=== PATIENT | female | born 1935 | race Caucasian/White ===

== ENCOUNTER 2017-02-09 13:25 | Emergency (ER) | payer OTHER ==
[~2017-02-09] VITALS: Ht 167.6 cm; Wt 90.3 kg
[~2017-02-09 13:25] MED LIST: ACEPHEN PR; ACET325 PO; ACET325S PR; ACET500; ALBIPROI INH; ALBU3IS INH; ALBU90OI INH; ALBU90OI6; ALBU90OI6 INH; ALBU90OI61; ALBU90OI61 INH; ALEN70 PO; ALLERGY10 MG; ALUM-MAG HYDRO360 ML PO; ALUMAG30SU PO; AMLO5; AMOCLA875 PO; Artificial Tea1 EACH BOTHEYES; Artificial Tear15 ML BOTHEYES; Aspirin EC81 MG PO; BISA10S PR; BUDE6HFA INH; BUME1 PO; BUME2 PO; BYSTOLIC 2.5 MG PO; Bystolic2.5 MG PO; CALCAVITD PO; CALCIUM + D3 E1 EACH PO; CALCIUM 600 +1 EAC3 PO; CEPH500 PO; CHOL10002 PO; CIPR500 PO; CLARITIN10 MG PO; COLE625 PO; CVS DISPOSABLE399 ML PR; Catapres0.1 MG PO; DEEP SEA44 ML; DICL25ER; DOCU100 PO; DULERA 100 MCG/13 GM INH; DULERA 200 MCG/13 GM IH; DULERA 200 MCG/13 GM INH; Duragesic 12 M12 MCG TD; Eye Drops15 ML BOTHEYES; FENT50TP TOP; FERR325 PO; FLONASE ALLERG9.9 ML NS; FLUO10 PO; FLUT44OIA INH; FURO20 PO; FURO40 PO; Fentanyl1 EAC2 TD; Ferus150 MG PO; Feverall650 MG PR; Fruity C250 MG PO; GAVILAX17 GM PO; GUAI600T33 PO; HYDACE5 PO; HYDACE5325 PO; Hair, Skin & N1 EACH PO; IBUP600 PO; IBUP800 PO; IRON150C PO; IRON159 MG PO; LANOXIN125 MCG PO; LANS30EC PO; LAVAP17G PO; LEVFLO250 PO; LEVFLO500 PO; LEVO750 PO; LIDO5TP TOP; LINE600 PO; LISI5 PO; LOPE2C; LOPE2C PO; LORA.5 PO; LORA1 PO; LORA10 PO; Lisinopril2.5 MG PO; Loratadine10 MG PO; MECL25 PO; MELA3; METOPROLOL; MIRT15 PO; MORPHINE PUMP; MULTIVITAMIN; Milk Of Ma400 MG/5 M PO; Multivitamins1 EAC4 PO; NEBI10 PO; NEBI5 PO; NITR100CA PO; NYST100000 PO; OMEP20ER; OMEP20ER PO; ONDA4 PO; ONDA4ODT MM; ONDA8ODT MM; OXYACE7.5T PO; OXYC10ER PO; OXYC10TA19 PO; OXYC5 PO; Omeprazole20 M1 PO; POTCHL10ER PO; PRED1 PO; PRED20 PO; PREG100 PO; PREG150 PO; PRIM50 PO; PROAIR RESPICL90 MCG INH; PROAIR RESPICL90 MCG PO; PROM25 PO; Prilosec Otc20 MG PO; Prozac20 MG PO; RANI150 PO; RXHYDACE PO; RXONDA4ODT MM; SENN187 PO; Senokotxtra17.2 MG PO; TIZANIDINE HCL2 MG PO; Tizanidine HCl2 MG PO; Tylenol With C1 EACH PO; VITAMIN B-121000 MCG PO; XARELTO15 MG PO; Zithromax250 MG PO; Zofran Odt4 MG SL; Zofran Odt8 MG PO; Zofran4 MG PO; [UNRECOGNIZED DRUG - OTHER] IV; [UNRECOGNIZED DRUG - SUPPLY] TOP
[2017-02-09] MEDS ORDERED: HYDR1TAB94 PO (13:48)
[2017-02-09] MEDS ORDERED: Norco 5-325 Ta1 EACH PO (16:12)
[2017-07-08] MEDS ORDERED: BUME1 PO (04:46)
[2017-07-08] MEDS ORDERED: CETI5 PO (04:48)
[2017-07-08] MEDS ORDERED: LIDOCAINE1 EACH TOP (04:55)
[2017-07-08] MEDS ORDERED: Bisac-Evac10 MG PR (04:57)
[2017-07-08] MEDS ORDERED: Norco 5-325 Ta1 EACH PO (04:59)
[2017-07-12] MEDS ORDERED: Augmentin 875-1 EACH PO (11:17)
[2017-07-12] MEDS ORDERED: CULTURELLE1 EACH PO (11:19)
[2017-07-12] MEDS ORDERED: POTA10T PO (11:19)
[2017-07-12] MEDS ORDERED: ONDA4 PO (11:20)
[2017-08-01] MEDS ORDERED: LIDOCAINE5 GM TOP (09:36)
[2017-10-21] MEDS ORDERED: Motion Sickness25 M1 PO (14:59)
[2017-10-21] MEDS ORDERED: Zofran Odt4 MG PO (14:59)
[2017-11-30] MEDS ORDERED: NEBI5 PO (07:28)
[2017-11-30] MEDS ORDERED: CEFP200 PO (09:30)
[2018-01-18] MEDS ORDERED: HYDR1TAB94 PO (02:15)
[2018-01-18] MEDS ORDERED: Colace100 MG PO (02:15)
[2018-01-18] MEDS ORDERED: ONDA4ODT MM (02:15)
== END 2017-02-09 17:20 | disposition home or self-care (01) ==
LOC: ER 13:25
DX: R07.2 Precordial pain (principal); I48.0 Paroxysmal atrial fibrillation; J44.9 Chronic obstructive pulmonary disease, unspecified; I25.2 Old myocardial infarction; I12.9 Hypertensive chronic kidney disease with stage 1 through stage 4 chronic kidney disease, or unspecified chronic kidney disease; N18.9 Chronic kidney disease, unspecified; D63.1 Anemia in chronic kidney disease; K21.9 Gastro-esophageal reflux disease without esophagitis; F32.9 Major depressive disorder, single episode, unspecified; Z88.2 Allergy status to sulfonamides; Z88.5 Allergy status to narcotic agent; Z88.8 Allergy status to other drugs, medicaments and biological substances; Z79.899 Other long term (current) drug therapy; E78.5 Hyperlipidemia, unspecified; Z90.710 Acquired absence of both cervix and uterus; Z90.49 Acquired absence of other specified parts of digestive tract; Z96.653 Presence of artificial knee joint, bilateral
CPT/HCPCS: 71010; 71020; 96374; 99284; J3010

== ENCOUNTER → 2017-02-12 | Outpatient (CLI) | payer OTHER ==
[~2017-02-12] MED LIST changes: +ALLERGY10 MG PO; +ASPI81CH PO; +AUGMENTIN125 MG/5 M PO; +AZIT500 PO; +Augmentin 875-1 EACH PO; +Bisac-Evac10 MG PR; +CEFP200 PO; +CEFU500T30 PO; +CETI5 PO; +CULTURELLE1 EACH PO; +Colace100 MG PO; +DOXY100 PO; +Desyrel50 MG PO; +FENTANYL1 EAC1 TOP; +HYDR1TAB94 PO; +LIDO700A20 TOP; +LIDOCAINE1 EACH TOP; +LIDOCAINE5 GM TOP; +MIRT15ST SL; +MORPHINE 1 MG/ML IV; +MORPHINE XX; +Micro-K10 MEQ PO; +Motion Sickness25 M1 PO; +NYST100000 TOP; +Norco 5-325 Ta1 EACH PO; +PANT40 PO; +POTA10T PO; +RISA-BID CAPLE1 EACH PO; +ROBITUSSIN COU237 ML PO; +ROPI1 PO; +SACC250C PO; +TRAM50 PO; +XARELTO20 MG PO; +Zofran Odt4 MG PO; +[UNRECOGNIZED DRUG - OTHER] BOTHEYES
[2017-02-12 14:38] LABS: Appearance, Urine Clear (Clear); Bilirubin, Urine Neg (Neg); Blood, Urine Neg (Neg); Color, Urine Yellow (P-Yellow); Glucose Qualitative, Urine Neg (Neg); Ketones, Urine Neg (Neg); Leukocyte Esterase, Urine Neg (Neg); Nitrite, Urine Neg (Neg); Protein, Urine Neg (Neg); Urobilinogen, Urine NORM (Normal)
== END ==
LOC: LAB 13:15
PROVIDERS: Family Medicine
DX: N39.0 Urinary tract infection, site not specified (principal)
CPT/HCPCS: 81003

== ENCOUNTER 2017-02-15 16:56 | Inpatient (IN) | payer OTHER ==
[~2017-02-15] VITALS: Ht 157.5 cm; Wt 75.6 kg
[~2017-02-15 16:56] MED LIST changes: -ALLERGY10 MG PO; -ASPI81CH PO; -AUGMENTIN125 MG/5 M PO; -AZIT500 PO; -Augmentin 875-1 EACH PO; -Bisac-Evac10 MG PR; -CEFP200 PO; -CEFU500T30 PO; -CETI5 PO; -CULTURELLE1 EACH PO; -Colace100 MG PO; -DOXY100 PO; -Desyrel50 MG PO; -FENTANYL1 EAC1 TOP; -LIDO700A20 TOP; -LIDOCAINE1 EACH TOP; -LIDOCAINE5 GM TOP; -MIRT15ST SL; -MORPHINE 1 MG/ML IV; -MORPHINE XX; -Micro-K10 MEQ PO; -Motion Sickness25 M1 PO; -NYST100000 TOP; -PANT40 PO; -POTA10T PO; -RISA-BID CAPLE1 EACH PO; -ROBITUSSIN COU237 ML PO; -ROPI1 PO; -SACC250C PO; -TRAM50 PO; -XARELTO20 MG PO; -Zofran Odt4 MG PO; -[UNRECOGNIZED DRUG - OTHER] BOTHEYES
[2017-02-15 17:41] LABS: BASOPHILS ABSOLUTE AUTO 0.02 K/mm3 (0.00-0.23); BASOPHILS PERCENT AUTO 0 % (0-2); EOSINOPHILS ABSOLUTE AUTO 0.23 K/mm3 (0.00-0.68); EOSINOPHILS PERCENT AUTO 3 % (0-6); Hematocrit 38.3 % (33.0-51.0); Hemoglobin 11.9 g/dL (11.5-16.0); IMMATURE GRAN ABSOLUTE AUTO 0.03 K/mm3 (0.00-0.10); IMMATURE GRAN PERCENT AUTO 0 % (0-1); LYMPHOCYTES ABSOLUTE AUTO 4.15 K/mm3 (0.84-5.20); LYMPHOCYTES PERCENT AUTO 46 % (21-46); MONOCYTES ABSOLUTE AUTO 0.62 K/mm3 (0.16-1.47); MONOCYTES PERCENT AUTO 7 % (4-13); Mean Corpuscular HGB 32.2 pg (26.0-34.0); Mean Corpuscular HGB Conc 31.1 g/dL (31.5-36.5); Mean Corpuscular Volume 104 fL (80-100); Mean Platelet Volume 11.3 fL (9.1-12.4); NEUTROPHILS ABSOLUTE AUTO 3.92 K/mm3 (1.96-9.15); NEUTROPHILS PERCENT AUTO 44 % (41-73); Platelet Count 182 K/mm3 (150-400); RDW Coefficient Variation 15.7 % (11.7-14.2); RDW Standard Deviation 59.9 fL (35.1-46.3); White Blood Cell Count 8.97 K/mm3 (4.00-11.30)
[2017-02-15 18:10] LABS: Albumin, Blood 3.4 g/dL (3.4-5.0); Albumin/Globulin Ratio 0.6 (0.8-1.8); Bilirubin, Total 0.4 mg/dL (0.1-1.0); Bun/Creatinine Ratio 28.5 (12.0-20.0); Calcium, Blood 8.7 mg/dL (8.5-10.1); Creatinine, Blood 0.98 mg/dL (0.40-1.00); Globulin, Blood 5.5 g/dL (2.2-4.0); Potassium, Blood 5.5 mmol/L (3.5-5.5); Total Protein, Blood 8.9 g/dL (6.4-8.2); Troponin I 0.026 ng/mL (0.000-0.040)
[2017-02-15 18:11] LABS: Base Excess Venous 5.4 mmol/L; Bicarbonate Venous 27.8 mmol/L (24.0-30.0); PCO2 Venous 63.3 mmHg (38-42); PO2 Venous 59.4 mmHg (38-42); pH Blood Venous 7.31 (7.34-7.37)
[2017-02-15 18:13] LABS: Digoxin (Lanoxin) 0.43 ug/mL (0.80-2.00)
[2017-02-15] MEDS ORDERED: NEBI10 PO (23:36)
[2017-02-16 04:44] LABS: BASOPHILS ABSOLUTE AUTO 0.01 K/mm3 (0.00-0.23); BASOPHILS PERCENT AUTO 0 % (0-2); EOSINOPHILS ABSOLUTE AUTO 0.01 K/mm3 (0.00-0.68); EOSINOPHILS PERCENT AUTO 0 % (0-6); Hematocrit 34.7 % (33.0-51.0); Hemoglobin 10.9 g/dL (11.5-16.0); IMMATURE GRAN PERCENT AUTO 0 % (0-1); LYMPHOCYTES ABSOLUTE AUTO 0.87 K/mm3 (0.84-5.20); LYMPHOCYTES PERCENT AUTO 16 % (21-46); MONOCYTES PERCENT AUTO 2 % (4-13); Mean Corpuscular HGB 32.1 pg (26.0-34.0); Mean Corpuscular HGB Conc 31.4 g/dL (31.5-36.5); Mean Corpuscular Volume 102 fL (80-100); NEUTROPHILS ABSOLUTE AUTO 4.59 K/mm3 (1.96-9.15); NEUTROPHILS PERCENT AUTO 82 % (41-73); Platelet Count 150 K/mm3 (150-400); RDW Coefficient Variation 15.5 % (11.7-14.2); RDW Standard Deviation 58.6 fL (35.1-46.3); White Blood Cell Count 5.58 K/mm3 (4.00-11.30)
[2017-02-16 05:08] LABS: Anion Gap 5 mmol/L (6-16); Blood Urea Nitrogen 25 mg/dL (8-24); Bun/Creatinine Ratio 27.7 (12.0-20.0); CO2, Blood 32 mmol/L (21-32); Calcium, Blood 8.3 mg/dL (8.5-10.1); Chloride, Blood 103 mmol/L (98-108); Glomerular Filtration Rate >60 (60-); Glucose, Blood 121 mg/dL (70-99); Potassium, Blood 4.3 mmol/L (3.5-5.5); Sodium, Blood 140 mmol/L (136-145); Troponin I 0.109 ng/mL (0.000-0.040)
[2017-02-16] MEDS ORDERED: XARELTO20 MG PO (14:37)
[2017-02-16] MEDS ORDERED: DULERA 100 MCG/13 GM INH (15:12)
[2017-02-16] MEDS ORDERED: Ferus150 MG PO (15:13)
[2017-02-16] MEDS ORDERED: FLUO10 PO (15:13)
[2017-02-16] MEDS ORDERED: Micro-K10 MEQ PO (15:25)
[2017-02-16] MEDS ORDERED: PRIM50 PO (15:26)
[2017-02-17 05:15] LABS: Anion Gap 6 mmol/L (6-16); Blood Urea Nitrogen 28 mg/dL (8-24); CO2, Blood 31 mmol/L (21-32); Calcium, Blood 8.3 mg/dL (8.5-10.1); Chloride, Blood 101 mmol/L (98-108); Glomerular Filtration Rate >60 (60-); Glucose, Blood 85 mg/dL (70-99); Potassium, Blood 4.2 mmol/L (3.5-5.5); Sodium, Blood 138 mmol/L (136-145)
[2017-02-19 05:36] LABS: Bun/Creatinine Ratio 32.7 (12.0-20.0); Calcium, Blood 8.1 mg/dL (8.5-10.1); Creatinine, Blood 1.13 mg/dL (0.40-1.00); Potassium, Blood 4.3 mmol/L (3.5-5.5)
[2017-02-21 05:17] LABS: BASOPHILS ABSOLUTE AUTO 0.02 K/mm3 (0.00-0.23); BASOPHILS PERCENT AUTO 0 % (0-2); EOSINOPHILS ABSOLUTE AUTO 0.23 K/mm3 (0.00-0.68); EOSINOPHILS PERCENT AUTO 4 % (0-6); Hematocrit 33.8 % (33.0-51.0); Hemoglobin 10.4 g/dL (11.5-16.0); IMMATURE GRAN PERCENT AUTO 0 % (0-1); LYMPHOCYTES ABSOLUTE AUTO 1.82 K/mm3 (0.84-5.20); LYMPHOCYTES PERCENT AUTO 32 % (21-46); MONOCYTES ABSOLUTE AUTO 0.56 K/mm3 (0.16-1.47); MONOCYTES PERCENT AUTO 10 % (4-13); Mean Corpuscular HGB Conc 30.8 g/dL (31.5-36.5); Mean Corpuscular Volume 104 fL (80-100); Mean Platelet Volume 11.4 fL (9.1-12.4); NEUTROPHILS ABSOLUTE AUTO 3.02 K/mm3 (1.96-9.15); NEUTROPHILS PERCENT AUTO 53 % (41-73); Platelet Count 177 K/mm3 (150-400); RDW Coefficient Variation 16.1 % (11.7-14.2); RDW Standard Deviation 60.7 fL (35.1-46.3); Red Blood Cell Count 3.25 M/mm3 (3.80-5.20); White Blood Cell Count 5.65 K/mm3 (4.00-11.30)
[2017-02-21 05:43] LABS: Bun/Creatinine Ratio 24.8 (12.0-20.0); Calcium, Blood 8.1 mg/dL (8.5-10.1); Creatinine, Blood 2.3 mg/dL (0.40-1.00)
[2017-02-21 10:18] LABS: Digoxin (Lanoxin) 0.55 ug/mL (0.80-2.00)
[2017-02-22 09:07] LABS: Calcium, Blood 8.1 mg/dL (8.5-10.1); Creatinine, Blood 2.07 mg/dL (0.40-1.00); Potassium, Blood 5.3 mmol/L (3.5-5.5)
[2017-02-23 05:03] LABS: Hematocrit 31.9 % (33.0-51.0); Hemoglobin 10.3 g/dL (11.5-16.0)
[2017-02-23 05:22] LABS: Bun/Creatinine Ratio 29.8 (12.0-20.0); Calcium, Blood 8.3 mg/dL (8.5-10.1); Creatinine, Blood 1.81 mg/dL (0.40-1.00); Potassium, Blood 4.9 mmol/L (3.5-5.5)
[2017-02-24 04:59] LABS: BASOPHILS ABSOLUTE AUTO 0.03 K/mm3 (0.00-0.23); BASOPHILS PERCENT AUTO 1 % (0-2); EOSINOPHILS ABSOLUTE AUTO 0.18 K/mm3 (0.00-0.68); EOSINOPHILS PERCENT AUTO 4 % (0-6); Hematocrit 30.7 % (33.0-51.0); Hemoglobin 9.8 g/dL (11.5-16.0); IMMATURE GRAN PERCENT AUTO 0 % (0-1); LYMPHOCYTES ABSOLUTE AUTO 1.67 K/mm3 (0.84-5.20); LYMPHOCYTES PERCENT AUTO 38 % (21-46); MONOCYTES ABSOLUTE AUTO 0.61 K/mm3 (0.16-1.47); MONOCYTES PERCENT AUTO 14 % (4-13); Mean Corpuscular HGB 32.1 pg (26.0-34.0); Mean Corpuscular HGB Conc 31.9 g/dL (31.5-36.5); NEUTROPHILS ABSOLUTE AUTO 1.91 K/mm3 (1.96-9.15); NEUTROPHILS PERCENT AUTO 43 % (41-73); Platelet Count 152 K/mm3 (150-400); RDW Coefficient Variation 15.3 % (11.7-14.2); RDW Standard Deviation 56.7 fL (35.1-46.3); Red Blood Cell Count 3.05 M/mm3 (3.80-5.20)
[2017-02-24 05:00] LABS: Mean Corpuscular Volume 101 fL (80-100)
[2017-02-24 05:13] LABS: Bun/Creatinine Ratio 30.5 (12.0-20.0); Calcium, Blood 8.2 mg/dL (8.5-10.1); Creatinine, Blood 1.64 mg/dL (0.40-1.00); Potassium, Blood 4.7 mmol/L (3.5-5.5)
[2017-02-25] MEDS ORDERED: AZIT500 PO (11:24)
[2017-02-25] MEDS ORDERED: ASPI81CH PO (11:24)
[2017-02-25] MEDS ORDERED: DOXY100 PO (11:24)
[2017-02-25] MEDS ORDERED: ROBITUSSIN COU237 ML PO (11:26)
[2017-02-25] MEDS ORDERED: FENTANYL1 EAC1 TOP (11:27)
[2017-02-25] MEDS ORDERED: LIDO700A20 TOP (11:28)
[2017-02-25] MEDS ORDERED: Loratadine10 MG PO (11:29)
[2017-02-25] MEDS ORDERED: TRAM50 PO (11:29)
[2017-02-25] MEDS ORDERED: Desyrel50 MG PO (11:30)
[2017-02-25] MEDS ORDERED: AUGMENTIN125 MG/5 M PO (11:31)
[2017-02-28 05:01] LABS: BASOPHILS ABSOLUTE AUTO 0.03 K/mm3 (0.00-0.23); BASOPHILS PERCENT AUTO 1 % (0-2); EOSINOPHILS ABSOLUTE AUTO 0.18 K/mm3 (0.00-0.68); EOSINOPHILS PERCENT AUTO 4 % (0-6); Hemoglobin 9.8 g/dL (11.5-16.0); IMMATURE GRAN ABSOLUTE AUTO 0.01 K/mm3 (0.00-0.10); IMMATURE GRAN PERCENT AUTO 0 % (0-1); LYMPHOCYTES ABSOLUTE AUTO 2.01 K/mm3 (0.84-5.20); LYMPHOCYTES PERCENT AUTO 41 % (21-46); MONOCYTES ABSOLUTE AUTO 0.51 K/mm3 (0.16-1.47); MONOCYTES PERCENT AUTO 10 % (4-13); Mean Corpuscular HGB 31.4 pg (26.0-34.0); Mean Corpuscular HGB Conc 30.6 g/dL (31.5-36.5); Mean Corpuscular Volume 103 fL (80-100); Mean Platelet Volume 11.3 fL (9.1-12.4); NEUTROPHILS ABSOLUTE AUTO 2.17 K/mm3 (1.96-9.15); NEUTROPHILS PERCENT AUTO 44 % (41-73); Platelet Count 149 K/mm3 (150-400); RDW Coefficient Variation 14.9 % (11.7-14.2); RDW Standard Deviation 56.3 fL (35.1-46.3); Red Blood Cell Count 3.12 M/mm3 (3.80-5.20); White Blood Cell Count 4.91 K/mm3 (4.00-11.30)
[2017-02-28 05:18] LABS: Albumin, Blood 2.8 g/dL (3.4-5.0); Albumin/Globulin Ratio 0.7 (0.8-1.8); Bilirubin, Total 0.3 mg/dL (0.1-1.0); Bun/Creatinine Ratio 25.2 (12.0-20.0); Calcium, Blood 8.3 mg/dL (8.5-10.1); Creatinine, Blood 1.43 mg/dL (0.40-1.00); Globulin, Blood 4.3 g/dL (2.2-4.0); Potassium, Blood 5.3 mmol/L (3.5-5.5); Total Protein, Blood 7.1 g/dL (6.4-8.2)
[2017-07-08] MEDS ORDERED: BUME1 PO (04:46)
[2017-07-08] MEDS ORDERED: CETI5 PO (04:48)
[2017-07-08] MEDS ORDERED: LIDOCAINE1 EACH TOP (04:55)
[2017-07-08] MEDS ORDERED: Bisac-Evac10 MG PR (04:57)
[2017-07-08] MEDS ORDERED: Norco 5-325 Ta1 EACH PO (04:59)
[2017-07-12] MEDS ORDERED: Augmentin 875-1 EACH PO (11:17)
[2017-07-12] MEDS ORDERED: CULTURELLE1 EACH PO (11:19)
[2017-07-12] MEDS ORDERED: POTA10T PO (11:19)
[2017-07-12] MEDS ORDERED: ONDA4 PO (11:20)
[2017-08-01] MEDS ORDERED: LIDOCAINE5 GM TOP (09:36)
[2017-10-21] MEDS ORDERED: Motion Sickness25 M1 PO (14:59)
[2017-10-21] MEDS ORDERED: Zofran Odt4 MG PO (14:59)
[2017-11-30] MEDS ORDERED: NEBI5 PO (07:28)
[2017-11-30] MEDS ORDERED: CEFP200 PO (09:30)
[2018-01-18] MEDS ORDERED: HYDR1TAB94 PO (02:15)
[2018-01-18] MEDS ORDERED: Colace100 MG PO (02:15)
[2018-01-18] MEDS ORDERED: ONDA4ODT MM (02:15)
== END 2017-02-28 16:12 | DRG 193 ==
LOC: DELPENDDIS → ER 16:56 → PCU 16:57 → MEDS 02-16 17:44 → ENPENDDIS 02-19 11:00 → EDPENDDIS 02-25 10:07 → ENPENDDIS 02-25 10:07 → MEDS 02-28 16:12
PROVIDERS: Emergency Medicine; Internal Medicine
DX: J18.9 Pneumonia, unspecified organism (principal); J96.21 Acute and chronic respiratory failure with hypoxia; N17.9 Acute kidney failure, unspecified; I95.9 Hypotension, unspecified; I27.20 Pulmonary hypertension, unspecified; I48.2 Chronic atrial fibrillation; I50.32 Chronic diastolic (congestive) heart failure; J44.0 Chronic obstructive pulmonary disease with (acute) lower respiratory infection; J96.22 Acute and chronic respiratory failure with hypercapnia; S22.20XA Unspecified fracture of sternum, initial encounter for closed fracture; Z66 Do not resuscitate; F03.90 Unspecified dementia, unspecified severity, without behavioral disturbance, psychotic disturbance, mood disturbance, and anxiety; M81.0 Age-related osteoporosis without current pathological fracture; D64.9 Anemia, unspecified
CPT/HCPCS: 36415; 71045; 71046; 71260; 80048; 80053; 80162; 82803; 83690; 83880; 84145; 84484; 85014; 85018; 85025; 92610; 93005; 93010; 93306; 94640; 94660; 94760; 94762; 96365; 96372; 96374; 96375; 96376; 97110; 97116; 97161; 97530; 99285; G0378; G8978; G8979; G8996; G8997; G8998; J0696; J1170; J1650; J1940; J1956; J2405; J2920; J3010; J7030; J7040; Q9967

== ENCOUNTER 2017-03-20 00:52 | Emergency (ER) | payer OTHER ==
[~2017-03-20] VITALS: Ht 167.6 cm; Wt 86.2 kg
[~2017-03-20 00:52] MED LIST changes: +ASPI81CH PO; +AUGMENTIN125 MG/5 M PO; +AZIT500 PO; +DOXY100 PO; +Desyrel50 MG PO; +FENTANYL1 EAC1 TOP; +LIDO700A20 TOP; +Micro-K10 MEQ PO; +ROBITUSSIN COU237 ML PO; +TRAM50 PO; +XARELTO20 MG PO
[2017-07-08] MEDS ORDERED: BUME1 PO (04:46)
[2017-07-08] MEDS ORDERED: CETI5 PO (04:48)
[2017-07-08] MEDS ORDERED: LIDOCAINE1 EACH TOP (04:55)
[2017-07-08] MEDS ORDERED: Bisac-Evac10 MG PR (04:57)
[2017-07-08] MEDS ORDERED: Norco 5-325 Ta1 EACH PO (04:59)
[2017-07-12] MEDS ORDERED: Augmentin 875-1 EACH PO (11:17)
[2017-07-12] MEDS ORDERED: CULTURELLE1 EACH PO (11:19)
[2017-07-12] MEDS ORDERED: POTA10T PO (11:19)
[2017-07-12] MEDS ORDERED: ONDA4 PO (11:20)
[2017-08-01] MEDS ORDERED: LIDOCAINE5 GM TOP (09:36)
[2017-10-21] MEDS ORDERED: Motion Sickness25 M1 PO (14:59)
[2017-10-21] MEDS ORDERED: Zofran Odt4 MG PO (14:59)
[2017-11-30] MEDS ORDERED: NEBI5 PO (07:28)
[2017-11-30] MEDS ORDERED: CEFP200 PO (09:30)
[2018-01-18] MEDS ORDERED: Colace100 MG PO (02:15)
[2018-01-18] MEDS ORDERED: HYDR1TAB94 PO (02:15)
[2018-01-18] MEDS ORDERED: ONDA4ODT MM (02:15)
== END 2017-03-20 04:49 | disposition home or self-care (01) ==
LOC: ER 00:52
DX: L76.22 Postprocedural hemorrhage of skin and subcutaneous tissue following other procedure (principal); Z88.2 Allergy status to sulfonamides; Z88.5 Allergy status to narcotic agent; Z88.1 Allergy status to other antibiotic agents; Z79.899 Other long term (current) drug therapy; Z79.82 Long term (current) use of aspirin; I11.0 Hypertensive heart disease with heart failure; I50.9 Heart failure, unspecified; J45.909 Unspecified asthma, uncomplicated; J44.9 Chronic obstructive pulmonary disease, unspecified
CPT/HCPCS: 12001; 99283; J2997

== ENCOUNTER → 2017-03-22 | Outpatient (CLI) | payer OTHER ==
[~2017-03-22] MED LIST changes: +ALLERGY10 MG PO; +Augmentin 875-1 EACH PO; +Bisac-Evac10 MG PR; +CEFP200 PO; +CEFU500T30 PO; +CETI5 PO; +CULTURELLE1 EACH PO; +Colace100 MG PO; +LIDOCAINE1 EACH TOP; +LIDOCAINE5 GM TOP; +MIRT15ST SL; +MORPHINE 1 MG/ML IV; +MORPHINE XX; +Motion Sickness25 M1 PO; +NYST100000 TOP; +PANT40 PO; +POTA10T PO; +RISA-BID CAPLE1 EACH PO; +ROPI1 PO; +SACC250C PO; +Zofran Odt4 MG PO; +[UNRECOGNIZED DRUG - OTHER] BOTHEYES
[2017-03-22 10:51] LABS: Hematocrit 28.4 % (33.0-51.0); Hemoglobin 8.8 g/dL (11.5-16.0); Mean Corpuscular HGB 33.2 pg (26.0-34.0); Mean Corpuscular Volume 107 fL (80-100); Mean Platelet Volume 11.5 fL (9.1-12.4); Platelet Count 136 K/mm3 (150-400); RDW Coefficient Variation 14.7 % (11.7-14.2); RDW Standard Deviation 58.7 fL (35.1-46.3); Red Blood Cell Count 2.65 M/mm3 (3.80-5.20); White Blood Cell Count 4.34 K/mm3 (4.00-11.30)
== END | disposition home or self-care (01) ==
LOC: LAB HH 10:42
PROVIDERS: Family Medicine
DX: I13.0 Hypertensive heart and chronic kidney disease with heart failure and stage 1 through stage 4 chronic kidney disease, or unspecified chronic kidney disease (principal); I50.33 Acute on chronic diastolic (congestive) heart failure; N18.9 Chronic kidney disease, unspecified
CPT/HCPCS: 85027

== ENCOUNTER 2017-06-24 23:59 | Observation (INO) | payer OTHER ==
[~2017-06-24] VITALS: Ht 170.2 cm; Wt 87.1 kg
[~2017-06-24 23:59] MED LIST changes: -ALLERGY10 MG PO; -Augmentin 875-1 EACH PO; -Bisac-Evac10 MG PR; -CEFP200 PO; -CEFU500T30 PO; -CETI5 PO; -CULTURELLE1 EACH PO; +CYAN500 PO; -Colace100 MG PO; -LIDOCAINE1 EACH TOP; -LIDOCAINE5 GM TOP; -MIRT15ST SL; -MORPHINE 1 MG/ML IV; -MORPHINE XX; -Motion Sickness25 M1 PO; -NYST100000 TOP; -PANT40 PO; -POTA10T PO; -PREG100 PO; -RISA-BID CAPLE1 EACH PO; -ROPI1 PO; -SACC250C PO; -VITAMIN B-121000 MCG PO; -Zofran Odt4 MG PO; -[UNRECOGNIZED DRUG - OTHER] BOTHEYES
[2017-06-25 00:27] LABS: BASOPHILS ABSOLUTE AUTO 0.03 K/mm3 (0.00-0.23); BASOPHILS PERCENT AUTO 1 % (0-2); EOSINOPHILS ABSOLUTE AUTO 0.25 K/mm3 (0.00-0.68); EOSINOPHILS PERCENT AUTO 5 % (0-6); Hematocrit 35.7 % (33.0-51.0); IMMATURE GRAN ABSOLUTE AUTO 0.01 K/mm3 (0.00-0.10); IMMATURE GRAN PERCENT AUTO 0 % (0-1); LYMPHOCYTES ABSOLUTE AUTO 2.82 K/mm3 (0.84-5.20); LYMPHOCYTES PERCENT AUTO 52 % (21-46); MONOCYTES ABSOLUTE AUTO 0.53 K/mm3 (0.16-1.47); MONOCYTES PERCENT AUTO 10 % (4-13); Mean Corpuscular HGB 32.7 pg (26.0-34.0); Mean Corpuscular HGB Conc 30.8 g/dL (31.5-36.5); Mean Corpuscular Volume 106 fL (80-100); Mean Platelet Volume 11.3 fL (9.1-12.4); NEUTROPHILS ABSOLUTE AUTO 1.83 K/mm3 (1.96-9.15); NEUTROPHILS PERCENT AUTO 33 % (41-73); Platelet Count 116 K/mm3 (150-400); RDW Coefficient Variation 12.9 % (11.7-14.2); RDW Standard Deviation 50.8 fL (35.1-46.3); Red Blood Cell Count 3.36 M/mm3 (3.80-5.20); White Blood Cell Count 5.47 K/mm3 (4.00-11.30)
[2017-06-25 00:33] LABS: International Normalized Ratio 1.52
[2017-06-25 00:56] LABS: Bun/Creatinine Ratio 31.4 (12.0-20.0); Calcium, Blood 8.7 mg/dL (8.5-10.1); Creatinine, Blood 1.18 mg/dL (0.40-1.00); Potassium, Blood 4.4 mmol/L (3.5-5.5)
[2017-06-25] MEDS ORDERED: ACET325 PO (02:07)
[2017-06-25] MEDS ORDERED: LOPE2C PO (02:08)
[2017-06-25] MEDS ORDERED: NEBI10 PO (02:11)
[2017-06-25] MEDS ORDERED: MORPHINE 1 MG/ML IV (02:16)
[2017-06-25 16:10] LABS: Source, Urine Clean Catch
[2017-06-25 16:20] LABS: Appearance, Urine Clear (Clear); Bilirubin, Urine Neg (Neg); Blood, Urine Neg (Neg); Color, Urine Yellow (P-Yellow); Glucose Qualitative, Urine Neg (Neg); Ketones, Urine Neg (Neg); Leukocyte Esterase, Urine Neg (Neg); Nitrite, Urine Neg (Neg); Protein, Urine Neg (Neg); Specific Gravity, Urine 1.015 (1.003-1.022); Urobilinogen, Urine NORM (Normal)
== END 2017-06-26 14:35 | disposition home or self-care (01) ==
LOC: ER 23:59 → MEDS 06-25 → ER 06-25 → MEDS 06-25 06:15
PROVIDERS: Emergency Medicine; Family Medicine
DX: S40.012A Contusion of left shoulder, initial encounter (principal); S70.02XA Contusion of left hip, initial encounter; S09.90XA Unspecified injury of head, initial encounter; J44.9 Chronic obstructive pulmonary disease, unspecified; I27.20 Pulmonary hypertension, unspecified; I13.0 Hypertensive heart and chronic kidney disease with heart failure and stage 1 through stage 4 chronic kidney disease, or unspecified chronic kidney disease; I50.32 Chronic diastolic (congestive) heart failure; N18.9 Chronic kidney disease, unspecified; D63.1 Anemia in chronic kidney disease; I48.0 Paroxysmal atrial fibrillation; Z79.82 Long term (current) use of aspirin; J96.11 Chronic respiratory failure with hypoxia; K21.9 Gastro-esophageal reflux disease without esophagitis; E78.5 Hyperlipidemia, unspecified; F32.9 Major depressive disorder, single episode, unspecified; M81.8 Other osteoporosis without current pathological fracture; Z88.2 Allergy status to sulfonamides; Z88.1 Allergy status to other antibiotic agents; Z88.5 Allergy status to narcotic agent; Z88.8 Allergy status to other drugs, medicaments and biological substances; Z79.899 Other long term (current) drug therapy; W18.30XA Fall on same level, unspecified, initial encounter
CPT/HCPCS: 70450; 72125; 72170; 72192; 73030; 73502; 80048; 81003; 85025; 85610; 85730; 87081; 93005; 93010; 94640; 94760; 97162; 97530; 99285; G0378; G8978; G8979

== ENCOUNTER → 2017-07-06 | Outpatient (CLI) | payer OTHER ==
[~2017-07-06] MED LIST changes: +Bisac-Evac10 MG PR; +CETI5 PO; +LIDOCAINE1 EACH TOP; +MORPHINE 1 MG/ML IV
[2017-07-06 12:20] LABS: Bilirubin, Urine Neg (Neg); Blood, Urine Neg (Neg); Glucose Qualitative, Urine Neg (Neg); Ketones, Urine Neg (Neg); Leukocyte Esterase, Urine Neg (Neg); Nitrite, Urine Neg (Neg); Protein, Urine Neg (Neg); Urobilinogen, Urine NORM (Normal)
[2017-07-06 12:24] LABS: Appearance, Urine Clear (Clear); Color, Urine Pale Yellow (P-Yellow)
== END | disposition home or self-care (01) ==
LOC: LAB SHORT 12:07 → LAB 12:07
PROVIDERS: Family Medicine
DX: N39.0 Urinary tract infection, site not specified (principal)
CPT/HCPCS: 81003

== ENCOUNTER 2017-07-07 08:53 | Observation (INO) | END 2017-07-12 12:14 | disposition home or self-care (01) ==

== ENCOUNTER → 2017-07-29 | Outpatient (CLI) | payer OTHER ==
[~2017-07-29] MED LIST changes: +Augmentin 875-1 EACH PO; +CULTURELLE1 EACH PO; +POTA10T PO
[2017-07-29 16:19] LABS: Bun/Creatinine Ratio 27.8 (12.0-20.0); Calcium, Blood 8.7 mg/dL (8.5-10.1); Creatinine, Blood 1.15 mg/dL (0.40-1.00); Potassium, Blood 5.2 mmol/L (3.5-5.5)
== END | disposition home or self-care (01) ==
LOC: LAB SHORT 15:00 → LAB HH 15:00
PROVIDERS: Family Medicine
DX: I11.0 Hypertensive heart disease with heart failure (principal); I50.32 Chronic diastolic (congestive) heart failure
CPT/HCPCS: 80048

== ENCOUNTER 2017-08-04 08:38 | Emergency (ER) | payer OTHER ==
[~2017-08-04] VITALS: Ht 165.1 cm; Wt 72.6 kg
[~2017-08-04 08:38] MED LIST changes: +LIDOCAINE5 GM TOP
[2017-08-04 09:26] LABS: BASOPHILS ABSOLUTE AUTO 0.03 K/mm3 (0.00-0.23); BASOPHILS PERCENT AUTO 1 % (0-2); EOSINOPHILS ABSOLUTE AUTO 0.18 K/mm3 (0.00-0.68); EOSINOPHILS PERCENT AUTO 4 % (0-6); Hematocrit 32.1 % (33.0-51.0); Hemoglobin 9.9 g/dL (11.5-16.0); IMMATURE GRAN ABSOLUTE AUTO 0.01 K/mm3 (0.00-0.10); IMMATURE GRAN PERCENT AUTO 0 % (0-1); LYMPHOCYTES ABSOLUTE AUTO 2.08 K/mm3 (0.84-5.20); LYMPHOCYTES PERCENT AUTO 51 % (21-46); MONOCYTES ABSOLUTE AUTO 0.35 K/mm3 (0.16-1.47); MONOCYTES PERCENT AUTO 9 % (4-13); Mean Corpuscular HGB 32.5 pg (26.0-34.0); Mean Corpuscular HGB Conc 30.8 g/dL (31.5-36.5); Mean Corpuscular Volume 105 fL (80-100); Mean Platelet Volume 10.9 fL (9.1-12.4); NEUTROPHILS ABSOLUTE AUTO 1.45 K/mm3 (1.96-9.15); NEUTROPHILS PERCENT AUTO 36 % (41-73); Platelet Count 109 K/mm3 (150-400); RDW Coefficient Variation 13.2 % (11.7-14.2); RDW Standard Deviation 50.2 fL (35.1-46.3); Red Blood Cell Count 3.05 M/mm3 (3.80-5.20)
[2017-08-04 09:41] LABS: Alanine Aminotransfer (ALT/SGP 20 U/L (12-78); Albumin, Blood 3.3 g/dL (3.4-5.0); Albumin/Globulin Ratio 0.8 (0.8-1.8); Alk Phos 48 U/L (50-136); Anion Gap 3 mmol/L (6-16); Aspartate Aminotrans (AST/SGOT 27 U/L (12-37); Bilirubin, Total 0.4 mg/dL (0.1-1.0); Blood Urea Nitrogen 17 mg/dL (8-24); CO2, Blood 36 mmol/L (21-32); Calcium, Blood 8.6 mg/dL (8.5-10.1); Chloride, Blood 104 mmol/L (98-108); Creatinine, Blood 0.89 mg/dL (0.40-1.00); Glomerular Filtration Rate >60 (60-); Glucose, Blood 89 mg/dL (70-99); Potassium, Blood 4.4 mmol/L (3.5-5.5); Sodium, Blood 143 mmol/L (136-145); Total Protein, Blood 7.3 g/dL (6.4-8.2)
[2017-08-04 10:02] LABS: Source, Urine Clean Catch
[2017-08-04 10:11] LABS: Bilirubin, Urine Neg (Neg); Blood, Urine Neg (Neg); Glucose Qualitative, Urine Neg (Neg); Ketones, Urine Neg (Neg); Leukocyte Esterase, Urine 1+ (Neg); Nitrite, Urine Neg (Neg); Protein, Urine Neg (Neg); Urobilinogen, Urine NORM (Normal)
[2017-08-04 10:22] LABS: Appearance, Urine Clear (Clear); Color, Urine Yellow (P-Yellow)
[2017-08-04 10:26] LABS: Bacteria Few /hpf; Red Blood Cells, Urine 0-2 /hpf (0-2); Squamous Epithelial Cells Few /hpf (Few)
[2017-08-04] MEDS ORDERED: CEPH500 PO (10:51)
== END 2017-08-04 14:05 | disposition home or self-care (01) ==
LOC: ER 08:38
PROVIDERS: Emergency Medicine
DX: N39.0 Urinary tract infection, site not specified (principal); I11.0 Hypertensive heart disease with heart failure; I50.9 Heart failure, unspecified; J44.9 Chronic obstructive pulmonary disease, unspecified; Z88.2 Allergy status to sulfonamides; Z88.5 Allergy status to narcotic agent; Z88.1 Allergy status to other antibiotic agents; Z88.8 Allergy status to other drugs, medicaments and biological substances; Z79.899 Other long term (current) drug therapy; Z79.51 Long term (current) use of inhaled steroids
CPT/HCPCS: 80053; 81001; 85025; 87077; 87086; 87186; 96374; 99283; J0696; P9612

== ENCOUNTER 2017-08-23 18:56 | Emergency (ER) | payer OTHER ==
[~2017-08-23] VITALS: Ht 170.2 cm; Wt 82.1 kg
[2017-08-23] MEDS ORDERED: BUME2 PO (19:31)
[2017-08-23] MEDS ORDERED: MIRT15ST SL (19:35)
[2017-08-23] MEDS ORDERED: MORPHINE XX (19:37)
[2017-08-23 19:59] LABS: BASOPHILS ABSOLUTE AUTO 0.02 K/mm3 (0.00-0.23); BASOPHILS PERCENT AUTO 0 % (0-2); EOSINOPHILS ABSOLUTE AUTO 0.28 K/mm3 (0.00-0.68); EOSINOPHILS PERCENT AUTO 6 % (0-6); Hematocrit 33.8 % (33.0-51.0); Hemoglobin 10.5 g/dL (11.5-16.0); IMMATURE GRAN PERCENT AUTO 0 % (0-1); LYMPHOCYTES ABSOLUTE AUTO 1.88 K/mm3 (0.84-5.20); LYMPHOCYTES PERCENT AUTO 40 % (21-46); MONOCYTES ABSOLUTE AUTO 0.41 K/mm3 (0.16-1.47); MONOCYTES PERCENT AUTO 9 % (4-13); Mean Corpuscular HGB 32.8 pg (26.0-34.0); Mean Corpuscular HGB Conc 31.1 g/dL (31.5-36.5); Mean Corpuscular Volume 106 fL (80-100); Mean Platelet Volume 10.9 fL (9.1-12.4); NEUTROPHILS PERCENT AUTO 45 % (41-73); Platelet Count 150 K/mm3 (150-400); RDW Coefficient Variation 13.4 % (11.7-14.2); RDW Standard Deviation 52.3 fL (35.1-46.3); White Blood Cell Count 4.69 K/mm3 (4.00-11.30)
[2017-08-23] MEDS ORDERED: RISA-BID CAPLE1 EACH PO (20:07)
[2017-08-23] MEDS ORDERED: NYST100000 TOP (20:09)
[2017-08-23 20:16] LABS: Albumin/Globulin Ratio 0.6 (0.8-1.8); Bilirubin, Total 0.3 mg/dL (0.1-1.0); Bun/Creatinine Ratio 26.6 (12.0-20.0); Calcium, Blood 8.3 mg/dL (8.5-10.1); Creatinine, Blood 1.39 mg/dL (0.40-1.00); Globulin, Blood 4.8 g/dL (2.2-4.0); Potassium, Blood 4.4 mmol/L (3.5-5.5); Total Protein, Blood 7.8 g/dL (6.4-8.2)
[2017-08-23 21:01] LABS: Source, Urine Clean Catch
[2017-08-23 21:10] LABS: Bilirubin, Urine Neg (Neg); Blood, Urine Neg (Neg); Glucose Qualitative, Urine Neg (Neg); Ketones, Urine Neg (Neg); Leukocyte Esterase, Urine Neg (Neg); Nitrite, Urine Neg (Neg); Protein, Urine Neg (Neg); Specific Gravity, Urine 1.015 (1.003-1.022); Urobilinogen, Urine NORM (Normal)
[2017-08-23 21:11] LABS: Appearance, Urine Clear (Clear); Color, Urine Yellow (P-Yellow)
== END 2017-08-23 22:35 | disposition home or self-care (01) ==
LOC: ER 18:56
PROVIDERS: Emergency Medicine
DX: R10.31 Right lower quadrant pain (principal); G89.29 Other chronic pain; I12.9 Hypertensive chronic kidney disease with stage 1 through stage 4 chronic kidney disease, or unspecified chronic kidney disease; N18.9 Chronic kidney disease, unspecified; D63.1 Anemia in chronic kidney disease; I48.0 Paroxysmal atrial fibrillation; J44.9 Chronic obstructive pulmonary disease, unspecified; K21.9 Gastro-esophageal reflux disease without esophagitis; Z88.2 Allergy status to sulfonamides; Z88.5 Allergy status to narcotic agent; Z88.1 Allergy status to other antibiotic agents; Z88.8 Allergy status to other drugs, medicaments and biological substances; Z79.899 Other long term (current) drug therapy; Z79.51 Long term (current) use of inhaled steroids
CPT/HCPCS: 36415; 74176; 80053; 81003; 83690; 85025; 99284-25

== ENCOUNTER 2017-09-06 09:27 | Inpatient (IN) | payer OTHER ==
[~2017-09-06] VITALS: Ht 162.6 cm; Wt 83.4 kg
[~2017-09-06 09:27] MED LIST changes: +MIRT15ST SL; +MORPHINE XX; +NYST100000 TOP; +RISA-BID CAPLE1 EACH PO
[2017-09-06] MEDS ORDERED: ROPI1 PO (10:06)
[2017-09-06 10:12] LABS: BASOPHILS ABSOLUTE AUTO 0.03 K/mm3 (0.00-0.23); BASOPHILS PERCENT AUTO 1 % (0-2); EOSINOPHILS ABSOLUTE AUTO 0.24 K/mm3 (0.00-0.68); EOSINOPHILS PERCENT AUTO 4 % (0-6); Hematocrit 35.7 % (33.0-51.0); Hemoglobin 10.8 g/dL (11.5-16.0); IMMATURE GRAN ABSOLUTE AUTO 0.01 K/mm3 (0.00-0.10); IMMATURE GRAN PERCENT AUTO 0 % (0-1); LYMPHOCYTES ABSOLUTE AUTO 3.99 K/mm3 (0.84-5.20); LYMPHOCYTES PERCENT AUTO 69 % (21-46); MONOCYTES ABSOLUTE AUTO 0.37 K/mm3 (0.16-1.47); MONOCYTES PERCENT AUTO 6 % (4-13); Mean Corpuscular HGB 32.6 pg (26.0-34.0); Mean Corpuscular HGB Conc 30.3 g/dL (31.5-36.5); Mean Corpuscular Volume 108 fL (80-100); Mean Platelet Volume 11.2 fL (9.1-12.4); NEUTROPHILS ABSOLUTE AUTO 1.14 K/mm3 (1.96-9.15); NEUTROPHILS PERCENT AUTO 20 % (41-73); Platelet Count 123 K/mm3 (150-400); RDW Coefficient Variation 12.8 % (11.7-14.2); RDW Standard Deviation 51.2 fL (35.1-46.3); Red Blood Cell Count 3.31 M/mm3 (3.80-5.20); White Blood Cell Count 5.78 K/mm3 (4.00-11.30)
[2017-09-06 10:21] LABS: Albumin, Blood 3.1 g/dL (3.4-5.0); Albumin/Globulin Ratio 0.6 (0.8-1.8); Bilirubin, Total 0.2 mg/dL (0.1-1.0); Bun/Creatinine Ratio 23.1 (12.0-20.0); Calcium, Blood 8.9 mg/dL (8.5-10.1); Creatinine, Blood 1.21 mg/dL (0.40-1.00); Globulin, Blood 5.1 g/dL (2.2-4.0); Potassium, Blood 4.6 mmol/L (3.5-5.5); Total Protein, Blood 8.2 g/dL (6.4-8.2)
[2017-09-07 05:23] LABS: BASOPHILS ABSOLUTE AUTO 0.02 K/mm3 (0.00-0.23); BASOPHILS PERCENT AUTO 1 % (0-2); EOSINOPHILS ABSOLUTE AUTO 0.11 K/mm3 (0.00-0.68); EOSINOPHILS PERCENT AUTO 3 % (0-6); Hematocrit 30.5 % (33.0-51.0); Hemoglobin 9.3 g/dL (11.5-16.0); IMMATURE GRAN ABSOLUTE AUTO 0.01 K/mm3 (0.00-0.10); IMMATURE GRAN PERCENT AUTO 0 % (0-1); LYMPHOCYTES ABSOLUTE AUTO 1.12 K/mm3 (0.84-5.20); LYMPHOCYTES PERCENT AUTO 31 % (21-46); MONOCYTES ABSOLUTE AUTO 0.36 K/mm3 (0.16-1.47); MONOCYTES PERCENT AUTO 10 % (4-13); Mean Corpuscular HGB 33.1 pg (26.0-34.0); Mean Corpuscular HGB Conc 30.5 g/dL (31.5-36.5); Mean Corpuscular Volume 109 fL (80-100); Mean Platelet Volume 11.4 fL (9.1-12.4); NEUTROPHILS ABSOLUTE AUTO 2.02 K/mm3 (1.96-9.15); NEUTROPHILS PERCENT AUTO 56 % (41-73); Platelet Count 127 K/mm3 (150-400); RDW Coefficient Variation 12.7 % (11.7-14.2); RDW Standard Deviation 51.3 fL (35.1-46.3); Red Blood Cell Count 2.81 M/mm3 (3.80-5.20); White Blood Cell Count 3.64 K/mm3 (4.00-11.30)
[2017-09-07 05:48] LABS: Albumin, Blood 2.4 g/dL (3.4-5.0); Albumin/Globulin Ratio 0.6 (0.8-1.8); Bilirubin, Total 0.4 mg/dL (0.1-1.0); Calcium, Blood 8.2 mg/dL (8.5-10.1); Creatinine, Blood 1.3 mg/dL (0.40-1.00); Potassium, Blood 4.9 mmol/L (3.5-5.5); Total Protein, Blood 6.4 g/dL (6.4-8.2)
[2017-09-07 16:22] LABS: Source, Urine Catheter
[2017-09-07 16:24] LABS: Bilirubin, Urine Neg (Neg); Blood, Urine Neg (Neg); Glucose Qualitative, Urine Neg (Neg); Ketones, Urine Neg (Neg); Leukocyte Esterase, Urine Neg (Neg); Nitrite, Urine Neg (Neg); Protein, Urine Neg (Neg); Specific Gravity, Urine 1.015 (1.003-1.022); Urobilinogen, Urine NORM (Normal)
[2017-09-07 16:31] LABS: Appearance, Urine Clear (Clear); Color, Urine Yellow (P-Yellow)
[2017-09-08 05:07] LABS: BASOPHILS ABSOLUTE AUTO 0.04 K/mm3 (0.00-0.23); BASOPHILS PERCENT AUTO 1 % (0-2); EOSINOPHILS ABSOLUTE AUTO 0.17 K/mm3 (0.00-0.68); EOSINOPHILS PERCENT AUTO 4 % (0-6); Hematocrit 30.8 % (33.0-51.0); Hemoglobin 9.3 g/dL (11.5-16.0); IMMATURE GRAN ABSOLUTE AUTO 0.01 K/mm3 (0.00-0.10); IMMATURE GRAN PERCENT AUTO 0 % (0-1); LYMPHOCYTES ABSOLUTE AUTO 1.94 K/mm3 (0.84-5.20); LYMPHOCYTES PERCENT AUTO 48 % (21-46); MONOCYTES ABSOLUTE AUTO 0.41 K/mm3 (0.16-1.47); MONOCYTES PERCENT AUTO 10 % (4-13); Mean Corpuscular HGB 32.1 pg (26.0-34.0); Mean Corpuscular HGB Conc 30.2 g/dL (31.5-36.5); Mean Platelet Volume 11.5 fL (9.1-12.4); NEUTROPHILS ABSOLUTE AUTO 1.51 K/mm3 (1.96-9.15); NEUTROPHILS PERCENT AUTO 37 % (41-73); Platelet Count 122 K/mm3 (150-400); RDW Coefficient Variation 12.7 % (11.7-14.2); RDW Standard Deviation 50.4 fL (35.1-46.3); White Blood Cell Count 4.08 K/mm3 (4.00-11.30)
[2017-09-08 05:08] LABS: Mean Corpuscular Volume 106 fL (80-100)
[2017-09-08 05:36] LABS: Albumin, Blood 2.7 g/dL (3.4-5.0); Albumin/Globulin Ratio 0.7 (0.8-1.8); Bilirubin, Total 0.4 mg/dL (0.1-1.0); Bun/Creatinine Ratio 20.2 (12.0-20.0); Calcium, Blood 8.4 mg/dL (8.5-10.1); Creatinine, Blood 1.14 mg/dL (0.40-1.00); Globulin, Blood 4.1 g/dL (2.2-4.0); Potassium, Blood 4.4 mmol/L (3.5-5.5); Total Protein, Blood 6.8 g/dL (6.4-8.2)
[2017-09-09 05:37] LABS: BASOPHILS ABSOLUTE AUTO 0.03 K/mm3 (0.00-0.23); BASOPHILS PERCENT AUTO 1 % (0-2); EOSINOPHILS ABSOLUTE AUTO 0.22 K/mm3 (0.00-0.68); EOSINOPHILS PERCENT AUTO 5 % (0-6); Hemoglobin 10.1 g/dL (11.5-16.0); IMMATURE GRAN ABSOLUTE AUTO 0.01 K/mm3 (0.00-0.10); IMMATURE GRAN PERCENT AUTO 0 % (0-1); LYMPHOCYTES ABSOLUTE AUTO 2.19 K/mm3 (0.84-5.20); LYMPHOCYTES PERCENT AUTO 52 % (21-46); MONOCYTES ABSOLUTE AUTO 0.38 K/mm3 (0.16-1.47); MONOCYTES PERCENT AUTO 9 % (4-13); Mean Corpuscular HGB 32.5 pg (26.0-34.0); Mean Corpuscular HGB Conc 31.6 g/dL (31.5-36.5); Mean Platelet Volume 11.2 fL (9.1-12.4); NEUTROPHILS ABSOLUTE AUTO 1.37 K/mm3 (1.96-9.15); NEUTROPHILS PERCENT AUTO 33 % (41-73); Platelet Count 124 K/mm3 (150-400); RDW Standard Deviation 48.8 fL (35.1-46.3); Red Blood Cell Count 3.11 M/mm3 (3.80-5.20)
[2017-09-09 05:55] LABS: Albumin, Blood 2.7 g/dL (3.4-5.0); Albumin/Globulin Ratio 0.6 (0.8-1.8); Bilirubin, Total 0.5 mg/dL (0.1-1.0); Bun/Creatinine Ratio 19.4 (12.0-20.0); Calcium, Blood 8.5 mg/dL (8.5-10.1); Creatinine, Blood 1.03 mg/dL (0.40-1.00); Globulin, Blood 4.5 g/dL (2.2-4.0); Potassium, Blood 4.2 mmol/L (3.5-5.5); Total Protein, Blood 7.2 g/dL (6.4-8.2)
[2017-09-09 06:10] LABS: Mean Corpuscular Volume 103 fL (80-100)
[2017-09-10 08:03] LABS: BASOPHILS ABSOLUTE AUTO 0.02 K/mm3 (0.00-0.23); BASOPHILS PERCENT AUTO 1 % (0-2); EOSINOPHILS ABSOLUTE AUTO 0.29 K/mm3 (0.00-0.68); EOSINOPHILS PERCENT AUTO 7 % (0-6); Hematocrit 29.3 % (33.0-51.0); Hemoglobin 9.3 g/dL (11.5-16.0); IMMATURE GRAN ABSOLUTE AUTO 0.01 K/mm3 (0.00-0.10); IMMATURE GRAN PERCENT AUTO 0 % (0-1); LYMPHOCYTES ABSOLUTE AUTO 2.12 K/mm3 (0.84-5.20); LYMPHOCYTES PERCENT AUTO 50 % (21-46); MONOCYTES ABSOLUTE AUTO 0.37 K/mm3 (0.16-1.47); MONOCYTES PERCENT AUTO 9 % (4-13); Mean Corpuscular HGB 33.1 pg (26.0-34.0); Mean Corpuscular HGB Conc 31.7 g/dL (31.5-36.5); Mean Corpuscular Volume 104 fL (80-100); Mean Platelet Volume 11.1 fL (9.1-12.4); NEUTROPHILS ABSOLUTE AUTO 1.44 K/mm3 (1.96-9.15); NEUTROPHILS PERCENT AUTO 34 % (41-73); Platelet Count 111 K/mm3 (150-400); RDW Coefficient Variation 12.9 % (11.7-14.2); RDW Standard Deviation 49.5 fL (35.1-46.3); Red Blood Cell Count 2.81 M/mm3 (3.80-5.20); White Blood Cell Count 4.25 K/mm3 (4.00-11.30)
[2017-09-10 08:46] LABS: Bun/Creatinine Ratio 16.2 (12.0-20.0); Calcium, Blood 8.8 mg/dL (8.5-10.1); Creatinine, Blood 1.11 mg/dL (0.40-1.00)
[2017-09-10 18:57] LABS: PCO2 Arterial 57.3 mmHg (35-45); PO2 Arterial 64.5 mmHg (80-100); pH Blood Arterial 7.37 (7.35-7.45)
[2017-09-10 19:28] LABS: BASOPHILS ABSOLUTE AUTO 0.04 K/mm3 (0.00-0.23); BASOPHILS PERCENT AUTO 1 % (0-2); EOSINOPHILS ABSOLUTE AUTO 0.27 K/mm3 (0.00-0.68); EOSINOPHILS PERCENT AUTO 6 % (0-6); Hematocrit 34.2 % (33.0-51.0); IMMATURE GRAN ABSOLUTE AUTO 0.01 K/mm3 (0.00-0.10); IMMATURE GRAN PERCENT AUTO 0 % (0-1); LYMPHOCYTES PERCENT AUTO 53 % (21-46); MONOCYTES ABSOLUTE AUTO 0.47 K/mm3 (0.16-1.47); MONOCYTES PERCENT AUTO 10 % (4-13); Mean Corpuscular HGB 33.1 pg (26.0-34.0); Mean Corpuscular HGB Conc 32.2 g/dL (31.5-36.5); Mean Corpuscular Volume 103 fL (80-100); Mean Platelet Volume 10.6 fL (9.1-12.4); NEUTROPHILS ABSOLUTE AUTO 1.46 K/mm3 (1.96-9.15); NEUTROPHILS PERCENT AUTO 31 % (41-73); Platelet Count 133 K/mm3 (150-400); RDW Coefficient Variation 12.7 % (11.7-14.2); RDW Standard Deviation 48.5 fL (35.1-46.3); Red Blood Cell Count 3.32 M/mm3 (3.80-5.20); White Blood Cell Count 4.75 K/mm3 (4.00-11.30)
[2017-09-10 19:39] LABS: Bun/Creatinine Ratio 16.1 (12.0-20.0); Calcium, Blood 9.2 mg/dL (8.5-10.1); Creatinine, Blood 1.12 mg/dL (0.40-1.00); Potassium, Blood 4.1 mmol/L (3.5-5.5)
[2017-09-11 04:58] LABS: BASOPHILS ABSOLUTE AUTO 0.03 K/mm3 (0.00-0.23); BASOPHILS PERCENT AUTO 1 % (0-2); EOSINOPHILS ABSOLUTE AUTO 0.31 K/mm3 (0.00-0.68); EOSINOPHILS PERCENT AUTO 7 % (0-6); Hemoglobin 9.2 g/dL (11.5-16.0); IMMATURE GRAN ABSOLUTE AUTO 0.01 K/mm3 (0.00-0.10); IMMATURE GRAN PERCENT AUTO 0 % (0-1); LYMPHOCYTES PERCENT AUTO 43 % (21-46); MONOCYTES ABSOLUTE AUTO 0.47 K/mm3 (0.16-1.47); MONOCYTES PERCENT AUTO 11 % (4-13); Mean Corpuscular HGB 32.4 pg (26.0-34.0); Mean Corpuscular HGB Conc 31.7 g/dL (31.5-36.5); Mean Corpuscular Volume 102 fL (80-100); NEUTROPHILS ABSOLUTE AUTO 1.73 K/mm3 (1.96-9.15); NEUTROPHILS PERCENT AUTO 39 % (41-73); RDW Coefficient Variation 12.8 % (11.7-14.2); RDW Standard Deviation 48.1 fL (35.1-46.3); Red Blood Cell Count 2.84 M/mm3 (3.80-5.20); White Blood Cell Count 4.45 K/mm3 (4.00-11.30)
[2017-09-11 05:23] LABS: Calcium, Blood 8.1 mg/dL (8.5-10.1); Creatinine, Blood 1.06 mg/dL (0.40-1.00)
[2017-09-11 05:25] LABS: Mean Platelet Volume 11.7 fL (9.1-12.4); Platelet Count 127 K/mm3 (150-400)
[2017-09-11] MEDS ORDERED: CEFU500T30 PO (11:40)
[2017-09-11] MEDS ORDERED: [UNRECOGNIZED DRUG - OTHER] BOTHEYES (11:40)
== END 2017-09-11 16:15 | disposition home health service (06) | DRG 194 ==
LOC: ER 09:27 → MEDS 09:28
PROVIDERS: Emergency Medicine; Hospitalist; Internal Medicine
DX: J18.9 Pneumonia, unspecified organism (principal); J44.0 Chronic obstructive pulmonary disease with (acute) lower respiratory infection; S22.39XA Fracture of one rib, unspecified side, initial encounter for closed fracture; F05 Delirium due to known physiological condition; I13.0 Hypertensive heart and chronic kidney disease with heart failure and stage 1 through stage 4 chronic kidney disease, or unspecified chronic kidney disease; R09.02 Hypoxemia; I50.9 Heart failure, unspecified; N18.9 Chronic kidney disease, unspecified; Z66 Do not resuscitate; F03.90 Unspecified dementia, unspecified severity, without behavioral disturbance, psychotic disturbance, mood disturbance, and anxiety; D53.9 Nutritional anemia, unspecified; I48.91 Unspecified atrial fibrillation; G25.0 Essential tremor; G25.81 Restless legs syndrome; D69.6 Thrombocytopenia, unspecified; K22.2 Esophageal obstruction; M54.5 Low back pain; G89.29 Other chronic pain; R44.1 Visual hallucinations; Z74.09 Other reduced mobility; Z79.899 Other long term (current) drug therapy; Z99.81 Dependence on supplemental oxygen; Z96.653 Presence of artificial knee joint, bilateral; Z96.89 Presence of other specified functional implants; W19.XXXA Unspecified fall, initial encounter
CPT/HCPCS: 36415; 36600; 71045; 71046; 80048; 80053; 81003; 82803; 83605; 83880; 85025; 87040; 87081; 92610; 93005; 93010; 94640; 94760; 96365; 96367; 96375; 97110; 97162; 97166; 97530; 99285-25; G0515; G8978; G8979; G8987; G8988; G8996; G8997; G8998; J0456; J0696; J1650; J2405; J2543; J3370; J7030; J7050

== ENCOUNTER → 2017-10-25 | Outpatient (CLI) | payer OTHER ==
[~2017-10-25] MED LIST changes: +ALLERGY10 MG PO; +CEFU500T30 PO; -CYAN500 PO; +Motion Sickness25 M1 PO; +PANT40 PO; +PREG100 PO; +ROPI1 PO; +SACC250C PO; +VITAMIN B-121000 MCG PO; +Zofran Odt4 MG PO; +[UNRECOGNIZED DRUG - OTHER] BOTHEYES
[2017-10-25 17:21] LABS: Bilirubin, Urine Neg (Neg); Blood, Urine 1+ (Neg); Glucose Qualitative, Urine Neg (Neg); Ketones, Urine Neg (Neg); Leukocyte Esterase, Urine 3+ (Neg); Nitrite, Urine Neg (Neg); Protein, Urine Neg (Neg); Urobilinogen, Urine NORM (Normal)
[2017-10-25 17:34] LABS: Appearance, Urine Clear (Clear); Color, Urine Yellow (P-Yellow)
[2017-10-25 17:35] LABS: Bacteria Few /hpf; Red Blood Cells, Urine 0-2 /hpf (0-2); Squamous Epithelial Cells Rare /hpf (Few); White Blood Cells, Urine 50-100 /hpf (0-5)
== END | disposition home or self-care (01) ==
LOC: LAB SHORT 17:07 → LAB 17:07
PROVIDERS: Family Medicine
DX: N39.0 Urinary tract infection, site not specified (principal)
CPT/HCPCS: 81001; 87077; 87086; 87186

== ENCOUNTER 2017-11-01 07:14 | Emergency (ER) | payer OTHER ==
[~2017-11-01] VITALS: Ht 170.2 cm; Wt 81.7 kg
[~2017-11-01 07:14] MED LIST changes: -ALLERGY10 MG PO; -PANT40 PO; -SACC250C PO
[2017-11-01 07:46] LABS: Bilirubin, Urine Neg (Neg); Blood, Urine Neg (Neg); Glucose Qualitative, Urine Neg (Neg); Ketones, Urine Neg (Neg); Leukocyte Esterase, Urine 1+ (Neg); Nitrite, Urine Neg (Neg); Protein, Urine 1+ (Neg); Urobilinogen, Urine 1+ (Normal)
[2017-11-01 07:48] LABS: BASOPHILS ABSOLUTE AUTO 0.03 K/mm3 (0.00-0.23); BASOPHILS PERCENT AUTO 1 % (0-2); EOSINOPHILS ABSOLUTE AUTO 0.12 K/mm3 (0.00-0.68); EOSINOPHILS PERCENT AUTO 2 % (0-6); Hematocrit 37.9 % (33.0-51.0); Hemoglobin 11.2 g/dL (11.5-16.0); IMMATURE GRAN ABSOLUTE AUTO 0.02 K/mm3 (0.00-0.10); IMMATURE GRAN PERCENT AUTO 0 % (0-1); LYMPHOCYTES ABSOLUTE AUTO 1.56 K/mm3 (0.84-5.20); LYMPHOCYTES PERCENT AUTO 28 % (21-46); MONOCYTES ABSOLUTE AUTO 0.49 K/mm3 (0.16-1.47); MONOCYTES PERCENT AUTO 9 % (4-13); Mean Corpuscular HGB 32.4 pg (26.0-34.0); Mean Corpuscular HGB Conc 29.6 g/dL (31.5-36.5); Mean Platelet Volume 10.4 fL (9.1-12.4); NEUTROPHILS ABSOLUTE AUTO 3.39 K/mm3 (1.96-9.15); NEUTROPHILS PERCENT AUTO 61 % (41-73); Platelet Count 182 K/mm3 (150-400); RDW Coefficient Variation 13.9 % (11.7-14.2); RDW Standard Deviation 55.3 fL (35.1-46.3); Red Blood Cell Count 3.46 M/mm3 (3.80-5.20); White Blood Cell Count 5.61 K/mm3 (4.00-11.30)
[2017-11-01 07:49] LABS: Appearance, Urine Clear (Clear); Color, Urine Yellow (P-Yellow)
[2017-11-01 07:50] LABS: Source, Urine Catheter
[2017-11-01 08:01] LABS: Albumin, Blood 3.2 g/dL (3.4-5.0); Albumin/Globulin Ratio 0.7 (0.8-1.8); Bilirubin, Total 0.5 mg/dL (0.1-1.0); Calcium, Blood 8.8 mg/dL (8.5-10.1); Creatinine, Blood 1.07 mg/dL (0.40-1.00); Globulin, Blood 4.8 g/dL (2.2-4.0); Potassium, Blood 4.6 mmol/L (3.5-5.5)
[2017-11-01 08:12] LABS: Squamous Epithelial Cells Few /hpf (Few)
[2017-11-01 08:13] LABS: Bacteria Few /hpf; Red Blood Cells, Urine 0-2 /hpf (0-2)
[2017-11-01 08:18] LABS: Mean Corpuscular Volume 110 fL (80-100)
[2017-11-01] MEDS ORDERED: BUME1 PO (08:26)
[2017-11-01] MEDS ORDERED: NEBI5 PO (08:27)
[2017-11-01] MEDS ORDERED: ALLERGY10 MG PO (08:28)
[2017-11-01] MEDS ORDERED: DULERA 100 MCG/13 GM INH (08:29)
[2017-11-01] MEDS ORDERED: SACC250C PO (08:30)
[2017-11-01] MEDS ORDERED: PANT40 PO (08:33)
[2017-11-01] MEDS ORDERED: NITR100CA PO (08:33)
[2017-11-01] MEDS ORDERED: PREG100 PO (13:16)
[2017-11-01] MEDS ORDERED: Zofran Odt4 MG SL (13:17)
== END 2017-11-01 14:02 | disposition home or self-care (01) ==
LOC: ER 07:14
PROVIDERS: Emergency Medicine
DX: E86.0 Dehydration (principal); R11.2 Nausea with vomiting, unspecified; R10.33 Periumbilical pain; Z88.2 Allergy status to sulfonamides; Z88.1 Allergy status to other antibiotic agents; Z88.8 Allergy status to other drugs, medicaments and biological substances; Z88.5 Allergy status to narcotic agent; Z79.899 Other long term (current) drug therapy; I11.0 Hypertensive heart disease with heart failure; I50.9 Heart failure, unspecified; J44.9 Chronic obstructive pulmonary disease, unspecified; I48.91 Unspecified atrial fibrillation
CPT/HCPCS: 71045; 80053; 81001; 83690; 85025; 87086; 96361; 96374; 96375; 96376; 99284-25; J1630; J2405; J2550; J3010; J7030; P9612

== ENCOUNTER → 2018-01-17 | Outpatient (CLI) | payer OTHER ==
[~2018-01-17] MED LIST changes: +ALLERGY10 MG PO; +Anecream 4% Ki1 EACH TOP; +CEFP200 PO; +Calmoseptine Oi71 GM TOP; +Colace100 MG PO; +FORMOTEROL FUMAR1 GM; +GABA100 PO; +HYOS.125 SL; +PANT40 PO; +Refresh Eye Dr1 EACH BOTHEYES; +SACC250C PO
[2018-01-17 13:17] LABS: Appearance, Urine Clear (Clear); Bilirubin, Urine Neg (Neg); Blood, Urine Neg (Neg); Color, Urine Yellow (P-Yellow); Glucose Qualitative, Urine Neg (Neg); Ketones, Urine Neg (Neg); Leukocyte Esterase, Urine 3+ (Neg); Nitrite, Urine Neg (Neg); Protein, Urine 1+ (Neg); Specific Gravity, Urine 1.015 (1.003-1.022); Urobilinogen, Urine NORM (Normal)
[2018-01-17 13:59] LABS: White Blood Cells, Urine 25-50 /hpf (0-5)
[2018-01-17 14:01] LABS: Bacteria Not Seen /hpf; Red Blood Cells, Urine Not Seen /hpf (0-2); Squamous Epithelial Cells Few /hpf (Few)
== END | disposition home or self-care (01) ==
LOC: LAB 10:45 → LAB SHORT 10:45
PROVIDERS: Nurse Practitioner Primary Care
DX: N39.0 Urinary tract infection, site not specified (principal)
CPT/HCPCS: 81001; 87077; 87086; 87186

== ENCOUNTER 2018-02-03 00:35 | Emergency (ER) | payer OTHER ==
[~2018-02-03] VITALS: Ht 162.6 cm; Wt 79.4 kg
[~2018-02-03 00:35] MED LIST changes: -Anecream 4% Ki1 EACH TOP; -Calmoseptine Oi71 GM TOP; -FORMOTEROL FUMAR1 GM; -GABA100 PO; -HYOS.125 SL; -Refresh Eye Dr1 EACH BOTHEYES
== END 2018-02-03 03:48 | disposition home or self-care (01) ==
LOC: ER 00:35
DX: S50.11XA Contusion of right forearm, initial encounter (principal); W18.30XA Fall on same level, unspecified, initial encounter; Z88.2 Allergy status to sulfonamides; Z88.5 Allergy status to narcotic agent; Z88.1 Allergy status to other antibiotic agents; Z88.8 Allergy status to other drugs, medicaments and biological substances; Z79.899 Other long term (current) drug therapy; Z79.891 Long term (current) use of opiate analgesic; I50.9 Heart failure, unspecified; I48.91 Unspecified atrial fibrillation
CPT/HCPCS: 73060; 99283-25

== ENCOUNTER 2018-02-08 05:25 | Emergency (ER) | payer OTHER ==
[~2018-02-08] VITALS: Ht 157.5 cm; Wt 71.2 kg
[2018-02-08] MEDS ORDERED: Fruity C250 MG PO (05:35)
[2018-02-08] MEDS ORDERED: CHOL10002 PO (05:37)
[2018-02-08] MEDS ORDERED: ACET325 PO (05:39)
[2018-02-08] MEDS ORDERED: Anecream 4% Ki1 EACH TOP (05:40)
[2018-02-08] MEDS ORDERED: HYDR1TAB94 PO (05:41)
[2018-02-08] MEDS ORDERED: Artificial Tea1 EACH BOTHEYES (05:41)
[2018-02-08] MEDS ORDERED: GAVILAX17 GM PO (05:43)
[2018-02-08] MEDS ORDERED: Refresh Eye Dr1 EACH BOTHEYES (05:44)
[2018-02-08] MEDS ORDERED: ALBU90OI6 INH (05:45)
[2018-02-08] MEDS ORDERED: TRAM50 PO (05:45)
[2018-02-08] MEDS ORDERED: NEBI5 PO (05:47)
[2018-02-08 05:48] LABS: BASOPHILS ABSOLUTE AUTO 0.04 K/mm3 (0.00-0.23); BASOPHILS PERCENT AUTO 1 % (0-2); EOSINOPHILS ABSOLUTE AUTO 0.21 K/mm3 (0.00-0.68); EOSINOPHILS PERCENT AUTO 4 % (0-6); Hematocrit 36.4 % (33.0-51.0); IMMATURE GRAN PERCENT AUTO 0 % (0-1); LYMPHOCYTES ABSOLUTE AUTO 2.48 K/mm3 (0.84-5.20); LYMPHOCYTES PERCENT AUTO 51 % (21-46); MONOCYTES ABSOLUTE AUTO 0.43 K/mm3 (0.16-1.47); MONOCYTES PERCENT AUTO 9 % (4-13); Mean Corpuscular HGB 31.7 pg (26.0-34.0); Mean Corpuscular HGB Conc 30.2 g/dL (31.5-36.5); Mean Corpuscular Volume 105 fL (80-100); Mean Platelet Volume 10.8 fL (9.1-12.4); NEUTROPHILS ABSOLUTE AUTO 1.72 K/mm3 (1.96-9.15); NEUTROPHILS PERCENT AUTO 35 % (41-73); Platelet Count 117 K/mm3 (150-400); RDW Coefficient Variation 15.4 % (11.7-14.2); RDW Standard Deviation 59.6 fL (35.1-46.3); Red Blood Cell Count 3.47 M/mm3 (3.80-5.20); White Blood Cell Count 4.88 K/mm3 (4.00-11.30)
[2018-02-08] MEDS ORDERED: DULERA 100 MCG/13 GM INH (05:49)
[2018-02-08] MEDS ORDERED: GABA100 PO (05:50)
[2018-02-08 06:05] LABS: Albumin, Blood 3.3 g/dL (3.4-5.0); Albumin/Globulin Ratio 0.7 (0.8-1.8); Bilirubin, Total 0.6 mg/dL (0.1-1.0); Bun/Creatinine Ratio 19.1 (12.0-20.0); Calcium, Blood 8.7 mg/dL (8.5-10.1); Creatinine, Blood 1.1 mg/dL (0.40-1.00); Globulin, Blood 4.8 g/dL (2.2-4.0); Potassium, Blood 4.3 mmol/L (3.5-5.5); Total Protein, Blood 8.1 g/dL (6.4-8.2)
[2018-02-08 08:00] LABS: Source, Urine Clean Catch
[2018-02-08 08:04] LABS: Bilirubin, Urine Neg (Neg); Blood, Urine Neg (Neg); Glucose Qualitative, Urine Neg (Neg); Ketones, Urine Neg (Neg); Leukocyte Esterase, Urine 2+ (Neg); Nitrite, Urine Neg (Neg); Protein, Urine 1+ (Neg); Specific Gravity, Urine 1.015 (1.003-1.022); Urobilinogen, Urine NORM (Normal)
[2018-02-08 08:06] LABS: Appearance, Urine Clear (Clear); Color, Urine Yellow (P-Yellow)
[2018-02-08 08:12] LABS: Red Blood Cells, Urine Not Seen /hpf (0-2); Squamous Epithelial Cells Few /hpf (Few); White Blood Cells, Urine TNTC /hpf (0-5)
[2018-02-08 08:13] LABS: Bacteria Few /hpf
[2018-02-08] MEDS ORDERED: Zofran4 MG PO (09:27)
[2018-02-08] MEDS ORDERED: CEPH500 PO (09:27)
[2018-02-09] MEDS ORDERED: Calmoseptine Oi71 GM TOP (05:56)
[2018-02-09] MEDS ORDERED: FORMOTEROL FUMAR1 GM (06:11)
[2018-02-09] MEDS ORDERED: ALBU90OI61 INH (06:16)
== END 2018-02-08 11:10 | disposition home or self-care (01) ==
LOC: ER 05:25
PROVIDERS: Emergency Medicine
DX: N39.0 Urinary tract infection, site not specified (principal); Z88.2 Allergy status to sulfonamides; Z88.5 Allergy status to narcotic agent; Z88.1 Allergy status to other antibiotic agents; Z88.8 Allergy status to other drugs, medicaments and biological substances; Z79.899 Other long term (current) drug therapy; J45.909 Unspecified asthma, uncomplicated; I50.9 Heart failure, unspecified; J44.9 Chronic obstructive pulmonary disease, unspecified; I48.91 Unspecified atrial fibrillation
CPT/HCPCS: 36415; 80053; 81001; 83690; 85025; 87086; 87106; 96361; 96365; 96375; 99283-25; J0696; J2405; J3010; J7030; P9612

== ENCOUNTER 2018-02-08 23:29 | Observation (INO) | payer OTHER ==
[~2018-02-08] VITALS: Ht 157.5 cm; Wt 54.2 kg
[~2018-02-08 23:29] MED LIST changes: +Anecream 4% Ki1 EACH TOP; +GABA100 PO; +Refresh Eye Dr1 EACH BOTHEYES
[2018-02-09 00:39] LABS: BASOPHILS ABSOLUTE AUTO 0.03 K/mm3 (0.00-0.23); BASOPHILS PERCENT AUTO 1 % (0-2); EOSINOPHILS ABSOLUTE AUTO 0.06 K/mm3 (0.00-0.68); EOSINOPHILS PERCENT AUTO 1 % (0-6); Hematocrit 33.1 % (33.0-51.0); IMMATURE GRAN ABSOLUTE AUTO 0.01 K/mm3 (0.00-0.10); IMMATURE GRAN PERCENT AUTO 0 % (0-1); LYMPHOCYTES ABSOLUTE AUTO 1.96 K/mm3 (0.84-5.20); LYMPHOCYTES PERCENT AUTO 36 % (21-46); MONOCYTES ABSOLUTE AUTO 0.32 K/mm3 (0.16-1.47); MONOCYTES PERCENT AUTO 6 % (4-13); Mean Corpuscular HGB 31.7 pg (26.0-34.0); Mean Corpuscular HGB Conc 30.2 g/dL (31.5-36.5); Mean Corpuscular Volume 105 fL (80-100); Mean Platelet Volume 10.8 fL (9.1-12.4); NEUTROPHILS ABSOLUTE AUTO 3.06 K/mm3 (1.96-9.15); NEUTROPHILS PERCENT AUTO 56 % (41-73); Platelet Count 103 K/mm3 (150-400); RDW Coefficient Variation 15.1 % (11.7-14.2); RDW Standard Deviation 59.1 fL (35.1-46.3); Red Blood Cell Count 3.15 M/mm3 (3.80-5.20); White Blood Cell Count 5.44 K/mm3 (4.00-11.30)
[2018-02-09 00:42] LABS: Source, Urine Catheter
[2018-02-09 00:45] LABS: Bilirubin, Urine Neg (Neg); Blood, Urine Neg (Neg); Glucose Qualitative, Urine Neg (Neg); Ketones, Urine 2+ (Neg); Leukocyte Esterase, Urine 2+ (Neg); Nitrite, Urine Neg (Neg); Protein, Urine Neg (Neg); Urobilinogen, Urine NORM (Normal); pH, Urine 6.5 (5.0-8.0)
[2018-02-09 00:52] LABS: Appearance, Urine Clear (Clear); Color, Urine Yellow (P-Yellow)
[2018-02-09 00:53] LABS: Bacteria Mod /hpf; Red Blood Cells, Urine 0-2 /hpf (0-2); Squamous Epithelial Cells Few /hpf (Few); White Blood Cells, Urine 25-50 /hpf (0-5)
[2018-02-09 00:59] LABS: Albumin, Blood 2.9 g/dL (3.4-5.0); Albumin/Globulin Ratio 0.7 (0.8-1.8); Bilirubin, Total 0.8 mg/dL (0.1-1.0); Bun/Creatinine Ratio 19.9 (12.0-20.0); Calcium, Blood 8.3 mg/dL (8.5-10.1); Creatinine, Blood 0.96 mg/dL (0.40-1.00); Globulin, Blood 4.2 g/dL (2.2-4.0); Potassium, Blood 4.3 mmol/L (3.5-5.5); Total Protein, Blood 7.1 g/dL (6.4-8.2)
[2018-02-09] MEDS ORDERED: Calmoseptine Oi71 GM TOP (05:56)
[2018-02-09] MEDS ORDERED: FORMOTEROL FUMAR1 GM (06:11)
[2018-02-09] MEDS ORDERED: ALBU90OI61 INH (06:16)
--- NOTE | 2018-02-09 06:53 | NUR ---
SHIFT SUMMARY PT ARRIVED TO ROOM APPROX 0430 LIFTING ASSISTANCE FROM STRETCHER TO BED NEEDED. C/O PAIN IN ABD AND MEDICATED PER EMAR C NORCO BUT VOMITED IT SHORTLY AFTER. MEDICATED PER EMAR FOR NAUSEA. INCONT OF URINE AND BM. BM SIZE ABOUT SIZE OF GOLFBALL. BED ALARM IN USE FOR SAFETY.
--- NOTE | 2018-02-09 17:39 | NUR ---
PT. LYING IN BED MOANING AND GROANING, NO GAGGING OR WRETCHING NOTED. PT. GIVEN 8MG IV ZOFRAN AND 30MG IV TORADOL FOR PAIN. DOES NOT APPEAR TO HAVE EFFECTED HER PAIN AT ALL.PT. HAS HAD 2 LACTULOSE ENEMAS TODAY AND ALL PO MEDS HELD R/T PT. NOT BEING ABLE TO KEEP HER MEDS DOWN. GOOD RETURN OF STOOL WITH EACH ENEMA PLUS STOOL IN BETWEEN ENEMAS, PT. NOW HAVING DIARRHEA.
--- NOTE | 2018-02-09 18:43 | NUR ---
review of pt with nursing pt cramping and calling out in pain repositioned will ask for possible low dose phnergren and reduce bowel prep. pt respitory rate up and loose stoools. pt fatigued and distruaght .
--- NOTE | 2018-02-10 04:02 | NUR ---
*SHIFT SUMMARY* PATIENT ALERT BUT NOT ORIENTED. PATIENT MOANING CONSITENTLY. PATIENT STATES SHE IS STILL NAUSEATED AFTER BEING MEDICATED. SPOKE WITH HOSPITALIST NEW ORDERS FOR PAIN AND NAUSEA MEDICINE. PATIENT MEDICATED ORDERED. PATIENT HAD MILD RELIEF WITH FIRST DOSE OF PAIN MEDICATION. PATIENT STILL HAD NAUSEA. PATIENT MEDICATED AGAIN FOR PAIN. PAIN REASSESSMENT PATIENT STILL IN PAIN, WITH INCREASED CONFUSION. PATIENT CONTINUED TO MOAN AND CALL OUT IN PAIN AND NAUSEA. CALLED HOSPITALIST AGAIN. DR WILLSON TO NOT GIVE THE ROXANOL, AND TRY ALTERNATING WITH ZOFRAN AND REGLAN. PATIENT CONTINUEING TO CALL OUT IN PAIN. PUNEET SQUIRES CALLED HOSPITALIST AGAIN AND RECIEVED AND ORDER FOR RECTAL TYLENOL AND FENTANYL. MEDICATED PATIENT WITH REGLAN AND RECTAL TYLENOL. PATIENT HAD MILD RELIEF. PATIENT HAS BEEN INCONTINENT OF URINE THROUGHOUT SHIFT. PATIENT AT BEGINING OF SHIFT WAS ALSO SHORT OF BREATH WITH INCREASED RESPIRATORY RATE. RESPIRATORY CAME AND EVALUATED PATIENT, BREATHING TREATMENT GIVEN. PATIENT HAS RECIEVED 3LITERS OF FLUIDS TODAY. PATIENTS LUNG SOUNDS ARE EXPIRATORY WHEEZING. HOSPITALIST WAS CALLED AND FLUIDS HAVE BEEN DISCONTINUED. CALL LIGHT WITHIN REACH, BED LOWERED AND LOCKED.
[2018-02-10 05:12] LABS: Bun/Creatinine Ratio 22.8 (12.0-20.0); Calcium, Blood 8.5 mg/dL (8.5-10.1); Creatinine, Blood 1.23 mg/dL (0.40-1.00); Potassium, Blood 4.1 mmol/L (3.5-5.5)
--- NOTE | 2018-02-10 10:40 | NUR ---
late entry. pt anxious moaning out in pain and labored elevated respirations. pt have moderate cramping and lower abdominal pain and some nause. took her pule three times ranging in 80 to 90's and regular. review with nursing to contact physician to reduce enemas and suggest phenergran in minimal dosing. pt risk for decline due to fatigue.
--- NOTE | 2018-02-10 10:44 | NUR ---
pt alert this am expresses pain less, states her breathing is still labored. she has slight headache denies belching or gas states no appetite. moderate tolerance of bath. ill fitting dentures took out lowers. nursing to order moditfied texture to make chewing easier.
--- NOTE | 2018-02-10 17:38 | NUR ---
SHIFT SUMMARY MEDICATED FOR ABODMINAL PAIN PER EMAR X1 THIS SHIFT. PT HAS NOT HAD MUCH OF AN APPETITE. THIS RN ENCOURAGED PT TO DRINK FLUIDS AND AN ENSURE. PT HAS HAD NO FURTHER COMPLAINTS THIS SHIFT. PT'S FAMILY IN TO VISIT WITH HER FOR PART OF THE AFTERNOON. PT ABLE TO GET SELF ON SIDE OF BED AND HAS SET THE BED ALARM OFF X2. NO NAUSEA OR VOMITING THIS SHIFT. NO ACUTE DISTRESS. CALL LIGHT IN REACH. WILL CONTINUE TO MONITOR AND REPORT TO ONCOMING RN.
[2018-02-11 05:03] LABS: Hematocrit 31.1 % (33.0-51.0); Hemoglobin 9.7 g/dL (11.5-16.0); Mean Corpuscular HGB 31.2 pg (26.0-34.0); Mean Corpuscular HGB Conc 31.2 g/dL (31.5-36.5); Mean Platelet Volume 11.9 fL (9.1-12.4); Platelet Count 124 K/mm3 (150-400); RDW Coefficient Variation 16.1 % (11.7-14.2); RDW Standard Deviation 59.4 fL (35.1-46.3); Red Blood Cell Count 3.11 M/mm3 (3.80-5.20); White Blood Cell Count 9.42 K/mm3 (4.00-11.30)
[2018-02-11 05:08] LABS: Mean Corpuscular Volume 100 fL (80-100)
[2018-02-11 05:25] LABS: Bun/Creatinine Ratio 28.7 (12.0-20.0); Calcium, Blood 8.6 mg/dL (8.5-10.1); Creatinine, Blood 1.22 mg/dL (0.40-1.00); Potassium, Blood 3.7 mmol/L (3.5-5.5)
--- NOTE | 2018-02-11 06:44 | NUR ---
denied abdnm pain, no bm during shift, call light in reach, a and orintated to self, able to make needs known, 2L via nc, saline locked, SBAR report provided returning rn
--- NOTE | 2018-02-11 18:14 | NUR ---
SHIFT SUMMARY PT CONTINUES TO NOT HAVE AN APPETITE. THIS RN ENCOURAGED PT TO DRINK ENSURE. PT DRANK HALF OF ONE. PT DOES LIKE TO DRINK CRANBERRY AND APPLE JUICE MIXED AND HAS BEEN DRINKING IT MORE. PT HAD TO BOWEL MOVEMENTS THIS SHIFT. NO COMPLAINTS OF ABDOMINAL PAIN OR NAUSEA THIS SHIFT. MEDICATED FOR BACK PAIN X1. PT UP IN CHAIR X2 ASSIST THIS EVENING. NO ACUTE CHANGES THIS SHIFT. CALL LIGHT IN REACH. WILL CONTINUE TO MONITOR AND REPORT TO ONCOMING RN.
--- NOTE | 2018-02-12 07:15 | NUR ---
no complaints of abdm pain, alert, call light in reach, 2L via nc, saline locked, walking rounds completed with oncoming day shift
--- NOTE | 2018-02-12 15:47 | NUR ---
DISCHARGE PLAN INFORMATION DR. PARSONS CALLED TO RELAY THE INFORMATION GATHERED FROM FAMILY. PT & DAUGHTER WOULD BE MOST COMFORTABLE DISCHARGING TOMORROW. AGREED THAT THIS WAS A FINE COURSE OF ACTION. NURSE GIANNA AT [facility] STATED THAT THE PT MUST BE A 1P ASSIST OR LESS IN ORDER TO RETURN. DURING THS STAY THE PT HAS BEEN A [address]P ASSIST[address] DR[address] PARSONS MADE AWARE & AND ORDERED A PHYSICAL THERAPY EVALUATION. WILL CONTINUE TO MONITOR. FAMLIY UPDATED.
--- NOTE | 2018-02-12 17:12 | NUR ---
SHIFT SUMMARY NO CHANGES IN ASSESSMENT AT THIS TIME. PT WAS ALERT & ORIENTED THROUGHOUT THE DAY. PT TO BE EVALUATED BY PT/OT TO DETERMINE DISCHARGE PLAN. PT CONTINUES TO HAVE LOOSE STOOL. WILL RELAY TO HOLD BOWEL PROTOCOL. [facility]. VSS. POSSIBLE DISCHARGE TO TAKE PLACE TOMORROW. PT ENCOURAGED TO INCREASE FOOD & ENSURE INTAKE. WILL CONTINUE TO MONITOR UNTIL TURNOVER IS COMEPLETE.
[2018-02-13 05:04] LABS: Hematocrit 31.1 % (33.0-51.0); Hemoglobin 9.6 g/dL (11.5-16.0); Mean Corpuscular HGB 32.2 pg (26.0-34.0); Mean Corpuscular HGB Conc 30.9 g/dL (31.5-36.5); Mean Platelet Volume 12.1 fL (9.1-12.4); Platelet Count 118 K/mm3 (150-400); RDW Coefficient Variation 16.3 % (11.7-14.2); RDW Standard Deviation 62.7 fL (35.1-46.3); Red Blood Cell Count 2.98 M/mm3 (3.80-5.20); White Blood Cell Count 7.55 K/mm3 (4.00-11.30)
[2018-02-13 05:05] LABS: Mean Corpuscular Volume 104 fL (80-100)
[2018-02-13 05:34] LABS: Bun/Creatinine Ratio 33.2 (12.0-20.0); Calcium, Blood 8.5 mg/dL (8.5-10.1); Creatinine, Blood 0.97 mg/dL (0.40-1.00); Potassium, Blood 3.4 mmol/L (3.5-5.5)
--- NOTE | 2018-02-13 07:14 | NUR ---
denied abdmn pain, alert, orintated at baseline, call light in reach, repositioned and changed multiple times, 2L saline locked, walking rounds completed with day staff
[2018-02-13] MEDS ORDERED: HYOS.125 SL (16:33)
--- NOTE | 2018-02-13 17:29 | NUR ---
1710 PT DISCHARGED TO [facility]IA [facility] W/C TRASPORT WITH 2L O2 NC. IV REMOVED. D/C PAPERWORK GIVEN TO FUEL SYSTEM MAINTENANCE SUPERVISOR ALONG WITH HARD SCRIPT FOR NORCO AND PT BELONGINGS. PT WITH VERY POOR PO INTAKE EVEN WITH ENCOURAGEMENT. UP TO CHAIR FOR LUNCH. PHYSICAL THERAPY CATHERINE COMPLETED THIS AM. PT SLEPT MOST OF THE DAY.
== END 2018-02-13 17:11 ==
LOC: ER 23:29 → MEDS 23:30
PROVIDERS: Emergency Medicine; Hospitalist; Internal Medicine; ADMIT Hospitalist
DX: R11.2 Nausea with vomiting, unspecified (principal); K56.41 Fecal impaction; N18.3 Chronic kidney disease, stage 3 (moderate); E66.9 Obesity, unspecified; F32.9 Major depressive disorder, single episode, unspecified; J44.9 Chronic obstructive pulmonary disease, unspecified; F03.90 Unspecified dementia, unspecified severity, without behavioral disturbance, psychotic disturbance, mood disturbance, and anxiety; R26.89 Other abnormalities of gait and mobility; Z74.09 Other reduced mobility; Z88.5 Allergy status to narcotic agent; Z88.2 Allergy status to sulfonamides; Z88.8 Allergy status to other drugs, medicaments and biological substances; Z79.899 Other long term (current) drug therapy
CPT/HCPCS: 36415; 74177; 80048; 80053; 81001; 83690; 85025; 85027; 87086; 94640; 94760; 96361; 96365; 96366; 96372; 96374; 96375; 96376; 97110; 97162; 97166; 97530; 99285-25; G0378; J0690; J1644; J1885; J2405; J2550; J2765; J7030; P9612; Q9967

== ENCOUNTER → 2018-03-04 | Outpatient (CLI) | payer OTHER ==
[~2018-03-04] MED LIST changes: +Calmoseptine Oi71 GM TOP; +FORMOTEROL FUMAR1 GM; +HYOS.125 SL
[2018-03-04 16:17] LABS: Hematocrit 31.3 % (33.0-51.0); Hemoglobin 9.5 g/dL (11.5-16.0); Mean Corpuscular HGB 32.3 pg (26.0-34.0); Mean Corpuscular HGB Conc 30.4 g/dL (31.5-36.5); Mean Corpuscular Volume 107 fL (80-100); Mean Platelet Volume 11.1 fL (9.1-12.4); Platelet Count 163 K/mm3 (150-400); RDW Coefficient Variation 15.4 % (11.7-14.2); Red Blood Cell Count 2.94 M/mm3 (3.80-5.20); White Blood Cell Count 4.94 K/mm3 (4.00-11.30)
[2018-03-04 16:23] LABS: Source, Urine Catheter
[2018-03-04 16:37] LABS: Bilirubin, Urine Neg (Neg); Blood, Urine Neg (Neg); Glucose Qualitative, Urine Neg (Neg); Ketones, Urine Neg (Neg); Leukocyte Esterase, Urine 1+ (Neg); Nitrite, Urine Neg (Neg); Protein, Urine 1+ (Neg); Urobilinogen, Urine NORM (Normal)
[2018-03-04 16:57] LABS: Bun/Creatinine Ratio 19.6 (12.0-20.0); Calcium, Blood 8.6 mg/dL (8.5-10.1); Creatinine, Blood 1.02 mg/dL (0.40-1.00); Potassium, Blood 4.5 mmol/L (3.5-5.5)
[2018-03-04 17:53] LABS: Appearance, Urine Clear (Clear); Color, Urine Yellow (P-Yellow)
[2018-03-04 17:54] LABS: Bacteria Few /hpf; Red Blood Cells, Urine 0-2 /hpf (0-2); Squamous Epithelial Cells Few /hpf (Few)
== END | disposition home or self-care (01) ==
LOC: EDSTATUS 09:28 → LAB UVN 15:40
PROVIDERS: Family Medicine
DX: N18.3 Chronic kidney disease, stage 3 (moderate) (principal); D63.1 Anemia in chronic kidney disease; N39.0 Urinary tract infection, site not specified
CPT/HCPCS: 80048; 81001; 85027; 87086

== ENCOUNTER → 2018-05-28 | Outpatient (CLI) | payer OTHER | END | disposition home or self-care (01) | LOC: LAB SHORT 10:48 → LAB EV 10:48 | DX: A49.9 Bacterial infection, unspecified (principal) | CPT/HCPCS: 87070; 87077; 87086; 87147; 87186; 87205 ==

== ENCOUNTER 2018-08-14 19:53 | Inpatient (IN) | payer OTHER ==
[~2018-08-14] VITALS: Ht 162.6 cm; Wt 85.7 kg
[~2018-08-14 19:53] MED LIST changes: +GENTEAL TEARS 015 M1 BOTHEYES; +MIRALAX17 GM PO; +OSCIMIN0.125 M1 PO; +TUMS500 MG PO; +VOLTAREN100 GM TOP
[2018-08-14 20:21] LABS: BASOPHILS ABSOLUTE AUTO 0.02 K/mm3 (0.00-0.23); BASOPHILS PERCENT AUTO 0 % (0-2); EOSINOPHILS ABSOLUTE AUTO 0.09 K/mm3 (0.00-0.68); EOSINOPHILS PERCENT AUTO 1 % (0-6); Hematocrit 41.7 % (33.0-51.0); Hemoglobin 12.5 g/dL (11.5-16.0); IMMATURE GRAN ABSOLUTE AUTO 0.03 K/mm3 (0.00-0.10); IMMATURE GRAN PERCENT AUTO 0 % (0-1); LYMPHOCYTES ABSOLUTE AUTO 2.32 K/mm3 (0.84-5.20); LYMPHOCYTES PERCENT AUTO 23 % (21-46); MONOCYTES ABSOLUTE AUTO 0.49 K/mm3 (0.16-1.47); MONOCYTES PERCENT AUTO 5 % (4-13); Mean Corpuscular HGB 32.8 pg (26.0-34.0); Mean Corpuscular Volume 109 fL (80-100); Mean Platelet Volume 10.6 fL (9.1-12.4); NEUTROPHILS ABSOLUTE AUTO 7.15 K/mm3 (1.96-9.15); NEUTROPHILS PERCENT AUTO 71 % (41-73); Platelet Count 174 K/mm3 (150-400); RDW Coefficient Variation 15.1 % (11.7-14.2); RDW Standard Deviation 61.1 fL (35.1-46.3); Red Blood Cell Count 3.81 M/mm3 (3.80-5.20)
[2018-08-14 20:37] LABS: Albumin, Blood 3.3 g/dL (3.4-5.0); Albumin/Globulin Ratio 0.7 (0.8-1.8); Bilirubin, Total 0.8 mg/dL (0.1-1.0); Bun/Creatinine Ratio 19.1 (12.0-20.0); Calcium, Blood 8.9 mg/dL (8.5-10.1); Creatinine, Blood 1.15 mg/dL (0.40-1.00); Globulin, Blood 4.5 g/dL (2.2-4.0); Potassium, Blood 4.8 mmol/L (3.5-5.5); Total Protein, Blood 7.8 g/dL (6.4-8.2)
[2018-08-14 21:08] LABS: Source, Urine Clean Catch
[2018-08-14 21:11] LABS: Bilirubin, Urine Neg (Neg); Blood, Urine 1+ (Neg); Glucose Qualitative, Urine Neg (Neg); Ketones, Urine Neg (Neg); Leukocyte Esterase, Urine 1+ (Neg); Nitrite, Urine Neg (Neg); Protein, Urine Neg (Neg); Urobilinogen, Urine NORM (Normal)
[2018-08-14 21:15] LABS: Appearance, Urine Clear (Clear); Color, Urine Pale Yellow (P-Yellow)
[2018-08-14 21:16] LABS: Bacteria Many /hpf; Red Blood Cells, Urine Rare /hpf (0-2); Squamous Epithelial Cells Not Seen /hpf (Few)
[2018-08-15] MEDS ORDERED: DEEP SEA44 ML (00:37)
[2018-08-15] MEDS ORDERED: TUMERIC/GINGER PO (00:50)
--- NOTE | 2018-08-15 01:03 | NUR ---
ASSUMED PT CARE AT 0015 PT ARRIVED ON UNIT VIA STRETCHER. RESPONSIVE, BUT NOT TALKING IN COMPLETE SENTENCES. ONLY ANSWERING YES/NO QUESTIONS AND MOANING/GROANING. SHE WAS RESPONSIVE TO PAIN. UPON ARRIVAL HER BLOOD PRESSURES WAS STARTING TO DECLINE PER ED RN. SBP 80'S WITH MAP GREATER THAN 60. UPON TRANSFERRING TO BED AND HOOKING PT UP TO MONITOR AND OBTAINING VS; BP WAS NOTED TO BE SBP 80'S WITH A MAP OF 68. NEXT BP READING SHOWED SBP 80 WITH MAP OF 60. AFTER ABOUT 30 MINUTES OF BEING ON UNIT PT'S SBP DROPPED TO THE 70'S WITH MAP IN THE 50'S. PLACED CALL TO DR. TELLEZ. NEW ORDERS FOR 1L BOLUS OF NS; OBTAIN ANOTHER IV ACCESS, AND START IV ABO. PT IS CURRENTLY NOT RESPONDING TO PAIN, BP IS NOW 66/37 WITH MAP OF 50; WILL PLACE CALL TO DR. TELLEZ AGAIN.
[2018-08-15 01:14] LABS: PCO2 Arterial 58.8 mmHg (35-45); PO2 Arterial 106 mmHg (80-100); pH Blood Arterial 7.35 (7.35-7.45)
--- NOTE | 2018-08-15 01:20 | NUR ---
NEW ORDERS FROM DR. TELLEZ TO START DOPAMINE INFUSION AND BOLUS ANOTHER 1L NS, WELL OBTAIN ANOTHER LACTIC ACID LEVEL.
--- NOTE | 2018-08-15 01:22 | NUR ---
CALLED DAUGHTER, TIM, TO UPDATE ON PT CONDITION DAUGHTER CONFIRMS THAT PT WOULD LIKE CPR PERFORMED IF SHE WAS TO FURTHER DECLINE, BUT NO INTUBATION. UPDATED ON DOCTOR ORDERS AND ALL INTERVENTIONS IN PLACE TO ATTEMPT TO SUPPORT BLOOD PRESSURE. DAUGHTER VERBALIZED UNDERSTANDING AND ASKED US TO KEEP HER UPDATED.
--- NOTE | 2018-08-15 02:03 | NUR ---
BLOOD PRESSURE IS RESPONDING TO FLUID BOLUS'S AND DOPAMINE INFUSION; PT IS NOW RESPONDING TO PRESSURE/PAIN AND ABLE TO COMMUNICATE WITH STAFF. STATED SHE FELT NAUSEAS; CALLED DR. TELLEZ REGARDING ZOFRAN ORDERS AND CHANGING PT TO ICU STATUS; RECEIVED ORDERS FOR BOTH. ZOFRAN 4MG IV Q6PRN.
[2018-08-15 02:26] LABS: BASOPHILS ABSOLUTE AUTO 0.04 K/mm3 (0.00-0.23); BASOPHILS PERCENT AUTO 0 % (0-2); EOSINOPHILS ABSOLUTE AUTO 0.01 K/mm3 (0.00-0.68); EOSINOPHILS PERCENT AUTO 0 % (0-6); Hematocrit 39.5 % (33.0-51.0); Hemoglobin 11.5 g/dL (11.5-16.0); IMMATURE GRAN ABSOLUTE AUTO 0.14 K/mm3 (0.00-0.10); IMMATURE GRAN PERCENT AUTO 1 % (0-1); LYMPHOCYTES ABSOLUTE AUTO 2.89 K/mm3 (0.84-5.20); LYMPHOCYTES PERCENT AUTO 16 % (21-46); MONOCYTES ABSOLUTE AUTO 1.34 K/mm3 (0.16-1.47); MONOCYTES PERCENT AUTO 7 % (4-13); Mean Corpuscular HGB 32.5 pg (26.0-34.0); Mean Corpuscular HGB Conc 29.1 g/dL (31.5-36.5); Mean Platelet Volume 10.7 fL (9.1-12.4); NEUTROPHILS ABSOLUTE AUTO 14.08 K/mm3 (1.96-9.15); NEUTROPHILS PERCENT AUTO 76 % (41-73); Platelet Count 127 K/mm3 (150-400); RDW Coefficient Variation 14.9 % (11.7-14.2); RDW Standard Deviation 61.9 fL (35.1-46.3); Red Blood Cell Count 3.54 M/mm3 (3.80-5.20)
[2018-08-15 02:30] LABS: Mean Corpuscular Volume 112 fL (80-100)
[2018-08-15 02:39] LABS: Bun/Creatinine Ratio 21.6 (12.0-20.0); Calcium, Blood 7.9 mg/dL (8.5-10.1); Creatinine, Blood 1.02 mg/dL (0.40-1.00); Potassium, Blood 5.6 mmol/L (3.5-5.5)
--- NOTE | 2018-08-15 03:45 | NUR ---
UPON ENTERING ROOM; PT HAD NOTED YELLOW EMESIS TO GOWN AND BEDDING. PT WAS EASY TO AROUSE AND STATED SHE FELT NAUSEAS; MEDICATED WITH 4MG ZOFRAN PRN. PT THEN EXPERIENCED ANOTHER EPISODE OF EMESIS NOTED TO BE GREEN/YELLOW IN COLOR. PT ALERT AND ABLE TO TALK IN COMPLETE IN SENTENCES.
--- NOTE | 2018-08-15 04:22 | NUR ---
RIGHT FOREARM PERIPHERAL IV INFILTRATED; STOPPED DOPAMINE AND NS INFUSION IMMEDIATELY; APPLIED WARM COMPRESS, D/C'D IV AND APPLIED PRESSURE BANDAGE. CHECKED IV TO LEFT AC, WHICH WAS LEAKING AND NOT PATENT; D/C'D THAT IV WELL. NO MORE IV ACCESS; THEREFORE, DOPAMINE HAS BEEN OFF AND BLOOD PRESSURES HAVE GONE FROM MAP 70'S TO 50'S. DR. TELLEZ AWARE AND ASKED THAT I CALL AND UPDATE THE FAMILY AND ASK IF THEY ARE OPPOSED TO A CENTRAL LINE. CALLED AND SPOKE WITH TIM, THE DAUGHTER, WHO STATED SHE WAS OKAY WITH THE PROCEDURE. DR. TELLEZ AT BEDSIDE NOW PREPPING FOR CENTRAL LINE.
--- NOTE | 2018-08-15 04:58 | NUR ---
DR. TELLEZ REQUESTING ASSISTANCE FROM DR. HILTON WITH CENTRAL LINE PLACEMENT. DR. HILTON COMING UP TO ATTEMPT IO ACCESS. WILL CONSULT PRESS MAINTAINER FOR FURTHER ASSISTANCE.
--- NOTE | 2018-08-15 05:09 | NUR ---
PLACED CALL TO DR. TSANG WHO STATED SHE WOULD BE IN TO HELP WITH CENTRAL LINE PLACEMENT. ADDED AUXILIARY PLANT OPERATOR CONSULT.
--- NOTE | 2018-08-15 06:12 | NUR ---
END OF SHIFT SUMMARY SEE ALL ABOVE PROGRESS NOTES REGARDING SHIFT SUMMARY. DR. TSANG AT BEDSIDE AT [address] CENTRAL LINE TO LEFT IJ. ORDERS FOR 25MG FENTANYL AND 4MG OF VERSED TO BE AT BEDSIDE. ONLY ADMINISTERED 12.5MG OF FENTANYL AND 2MG OF VERSED; WASTED 87.5 MG OF FENTANYL AND 2MG OF VERSED WITH SHAW SILVESTRE. CENTRAL LINE CONFIRMED WITH XRAY; DR. TELLEZ GAVE ORDERS TO GO AHEAD AND USE THE CENTRAL LINE; SWITCHED FLUIDS OVER FROM IO ACCESS TO RIGHT IJ CENTRAL LINE. DOPAMINE IS CURRENTLY AT 5MCG/KG/MIN. NS CONTINUES AT 200MLS/HR. CRITICAL TROPONIN LEVEL CAME BACK AT 1.47; CALLED TO INFORM DR. TELLEZ WHO ENTERED ORDERS FOR CARDIOLOGY CONSULT AND ASKED ME TO OBTAIN EKG AND CALL WITH RESULTS. BLOOD PRESSURES REMAIN STABLE AT THIS TIME. WILL CONTINUE TO MONITOR UNTIL REPORT IS HANDED OFF TO ONCOMING RN.
--- NOTE | 2018-08-15 07:25 | NUR ---
REPORT CARDIOLOGY CONSULT-DR. FLORES HERE-UPDATED BY ELVIRA SQUIRES. REVIEWED PT, EKG. STATES DO NOT NEED TO START HEPARIN. NOTIFIED DR. ESPINOZA-ORDERS FOR HEPARIN D/C FOR NOW.
--- NOTE | 2018-08-15 08:20 | NUR ---
ASSESSMENT- PT ASLEEP WHEN UNDISTURBED. AWAKENS EASILY, ABLE TO ANSWER QUESTIONS AND FOLLOWS DIRECTIONS BUT BACK TO SLEEP QUICKLY. EXPLAINED PLAN OF CARE. DENIES ANY PAIN OR N/V. RESPIRATIONS UNLABORED. NSR NO ECTOPY. DOPAMINE INFUSION AT 5 MCG/KG/MIN FOR BP SUPPORT, NS AT 200 CC/HR. LUNGS WITH CRACKLES BIBASILAR. CONTINUOUS OXYGEN SATURATIONS MONITORED-STABLE. ABDOMEN SOFT, NO BOWEL SOUNDS HEARD. DEPENDS ON. PEDAL EDEMA, PULSES INTACT ALL EXTREMITIES. COLOR PALE, SKIN COOL.RIJ CENTRAL LINE INTACT. LEFT LEG I/O INTACT-WILL D/C PER ORDERS.
[2018-08-15 09:11] LABS: International Normalized Ratio 1.21; Prothrombin Time Results 12.6 Sec (9.7-11.5)
--- NOTE | 2018-08-15 09:36 | NUR ---
DR. ESPINOZA HERE-UPDATED, SPOKE WITH RECORDS ADMINISTRATOR. TROPONIN ORDERED. ASSESSMENT UNCHANGED.
--- NOTE | 2018-08-15 10:50 | NUR ---
PT'S DAUGHTER CALLED-RETURNED CALL. PERMISSION FROM PT TO TALK WITH DAUGHTER. UPDATE GIVEN. TROPONIN ELEVATED-CALLED TO DR. STUART AND DR. ESPINOZA. ORDERS FOR SQ HEPARIN.
--- NOTE | 2018-08-15 11:00 | NUR ---
LATE ENTRY- IO CATHETER REMOVED BY OVIDIO RN, PT TOLERATED WELL.
--- NOTE | 2018-08-15 11:18 | NUR ---
ECHOCARDIOGRAM COMPLETED
--- NOTE | 2018-08-15 13:07 | NUR ---
DR. BERUMEN HERE-DISCUSSED PLAN OF CARE WITH FAMILY. DR. STUART HERE-STATED CHANGED ORDER TO START HEPARIN GTT D/T ECHO RESULT. HEPARIN GTT STARTED PER ORDERS. PT HAD FEW SIPS WATER PER REQUEST, NOW NAUSEATED, 50 CC BILE EMESIS. ZOFRAN GIVEN, REPOSITIONED FOR COMFORT. FAMILY AT BEDSIDE UPDATED WITH CARES.
--- NOTE | 2018-08-15 13:46 | NUR ---
INCONTINENT, ATTENDS CHANGED. TOLERATES TURNING, HELPS WITH MOVEMENT. STATED NAUSEA HAD RESOLVED AFTER RX BUT NAUSEATED AFTER MOVEMENT AND STATED SOME SOB THAT RESOLVED [id number]. NO CHEST PAIN. BACK TO SLEEP EASILY. CONTINUE TO MONITOR
--- NOTE | 2018-08-15 15:38 | NUR ---
PT HAS BEEN RESTING WITHOUT COMPLAINTS. FAMILY AT BEDSIDE. CHANGED FROM DOPAMINE TO LEVOPHED, INITIALLY HEARTRATE DECREASED TO 48-52 BPM, NOW HEARTRATE 58-60. SBP 90'S. NS AT 100 CC/HR. DAUGHTERS DISCUSSED PLAN WITH PT-PT VOICES DOES NOT WANT CPR OR LIFE SUPPORT OR DEFIBRILLATION. DNR STATUS, DR BERUMEN HERE.
--- NOTE | 2018-08-15 16:06 | NUR ---
SKIN- BUTTOCKS REDDENED, LOTION APPLIED. POSITIONED TO KEEP PRESSURE OFF COCCYX. LEFT IO SITE WEEPING-DRESSING REPLACED
--- NOTE | 2018-08-15 18:21 | NUR ---
PT REPOSITIONED, SOB WITH MOVEMENT THAT RESOLVES QUICKLY. AWAKENS EASILY BUT SLEEPS WHEN UNDISTURBED. SINUS RHYTHM 50'S, BP STABLE WITH LEVOPHED AT 4 MCG/MIN, NS AT 100 CC/HR, SECOND ALBUMIN INFUSING, AND HEPARIN GTT. PTT AT 1999 SCHEDULED. NO N/V, DENIES ANY APPETITE RIGHT NOW. LEFT LEG IO SITE WEEPING. SCDS ON. OXYGEN AT 2L/MIN NC-SATURATIONS STABLE.
--- NOTE | 2018-08-15 19:15 | NUR ---
ASSUMED CARE OF PT, REPORT RCV'D FROM DELVIN Knight RN. PT ALERT AND ORIENTED. DENIES PAIN BUT STATES THAT SHE IS FEELING "HOT AND NAUSEOUS", PT TREATED WITH ZOFRAN AND REPORTS RELIEF. PT ON 3LNC, LEVOPHED @4 MCG/MIN, HEPARIN GTT @ 13 U/KG/HR. PLEASE SEE SHIFT ASSESSMENT.
--- NOTE | 2018-08-15 19:29 | NUR ---
NEED TO INCREASE OXYGEN TO 3L/MIN TO MAINTAIN SATURATIONS >90%.
[2018-08-16 03:10] LABS: BASOPHILS ABSOLUTE AUTO 0.03 K/mm3 (0.00-0.23); BASOPHILS PERCENT AUTO 0 % (0-2); EOSINOPHILS PERCENT AUTO 0 % (0-6); Hematocrit 38.9 % (33.0-51.0); Hemoglobin 11.1 g/dL (11.5-16.0); IMMATURE GRAN ABSOLUTE AUTO 0.09 K/mm3 (0.00-0.10); IMMATURE GRAN PERCENT AUTO 1 % (0-1); LYMPHOCYTES ABSOLUTE AUTO 1.05 K/mm3 (0.84-5.20); LYMPHOCYTES PERCENT AUTO 7 % (21-46); MONOCYTES ABSOLUTE AUTO 0.81 K/mm3 (0.16-1.47); MONOCYTES PERCENT AUTO 6 % (4-13); Mean Corpuscular HGB 32.4 pg (26.0-34.0); Mean Corpuscular HGB Conc 28.5 g/dL (31.5-36.5); Mean Corpuscular Volume 113 fL (80-100); Mean Platelet Volume 10.8 fL (9.1-12.4); NEUTROPHILS PERCENT AUTO 86 % (41-73); Platelet Count 100 K/mm3 (150-400); RDW Coefficient Variation 15.2 % (11.7-14.2); RDW Standard Deviation 63.3 fL (35.1-46.3); Red Blood Cell Count 3.43 M/mm3 (3.80-5.20); White Blood Cell Count 14.48 K/mm3 (4.00-11.30)
[2018-08-16 03:24] LABS: Anion Gap 5 mmol/L (6-16); Blood Urea Nitrogen 22 mg/dL (8-24); Bun/Creatinine Ratio 21.6 (12.0-20.0); CO2, Blood 27 mmol/L (21-32); Calcium, Blood 7.8 mg/dL (8.5-10.1); Chloride, Blood 113 mmol/L (98-108); Creatinine, Blood 1.02 mg/dL (0.40-1.00); Glomerular Filtration Rate 55 (60-); Glucose, Blood 115 mg/dL (70-99); Phosphorus, Blood 3.9 mg/dL (2.5-4.9); Potassium, Blood 5.6 mmol/L (3.5-5.5); Sodium, Blood 145 mmol/L (136-145)
[2018-08-16] MEDS ORDERED: NEBI5 PO (04:43)
[2018-08-16] MEDS ORDERED: Anti-Diarrheal2 M1 PO (04:53)
--- NOTE | 2018-08-16 06:01 | NUR ---
SHIFT SUMMARY PT CONTINUES TO EXPERIENCE NAUSEA AND NEEDS TO BE MEDICATED WITH ZOFRAN. PT LETHARGIC DENIES PAIN AND STATES THAT SHE "JUST DOESN'T FEEL GOOD". HEPARIN REMAINS AT 13 UNITS/KG/HR. LEVOPHED PLACED ON STANDBY. NS @ 100ML/HR. CRACKLES HEARD IN LUNGS BILATERAL UPPER, PT ON 3L NC WITH SATS IN THE MID 90'S. HR REMAINS OVER 60 BPM. SEE SHIFT ASSESSMENTS. WILL REPORT TO DAYSHIFT NURSE.
--- NOTE | 2018-08-16 08:38 | NUR ---
0810-PT WAS INTUBATED AT THIS TIME. PT WAS PREMEDICATED WITH 40MG PROPOFOL IVP BY DR. BERUMEN. PT HAS AN ET TUBE OF 8.0 AND 22 @ THE LIP. 0838-BEDSIDE BRONCHOSCOPY DONE AT THIS TIME. PT WAS PREMEDICATED WITH 20MG OF PROPOFOL IVP BY DR. BERUMEN.
--- NOTE | 2018-08-16 09:19 | NUR ---
0700-ASSUMED CARE OF PT. PT IS SLEEPY BUT AROUSABLE TO VERBAL STIMULI. FOLLOWING COMMANDS. PT IS ORIENTED x 4. PT STATES SHE'S FEELING NAUSEATED. PT WAS RECENTLY MEDICATED WITH ZOFRAN. 09-DR. GROSS CAME BY TO SEE PT. UPDATED HER OF PT'S STATUS.
--- NOTE | 2018-08-16 11:40 | NUR ---
DR. BERUMEN WAS NOTIFIED REGARDING PATIENT'S BLOOD PRESSURE EPISODES ON THE 80s WITH MAP OF 6O AND GREATER. LEVOPHED HAS BEEN OFF SINCE 399. ORDERS RECEIVED.
--- NOTE | 2018-08-16 12:19 | NUR ---
PT MOSTLY SLEEPING. OPENS EYES WHEN THIS NURSE IS CHECKING PT'S IV. PT COMPLAINTS OF SORE NECK TO DUE CENTRAL LINE LOCATION. PT AFEBRILE.
--- NOTE | 2018-08-16 17:48 | NUR ---
PT COMPLAINTS OF ABDOMINAL PAIN AND PAIN AROUND THE NAVEL. DR. ESPINOZA WAS NOTIFIED. ORDERS RECIEVED.
--- NOTE | 2018-08-16 19:00 | NUR ---
SHIFT SUMMARY: PT HAS BEEN COMPLAINING OF ABDOMINAL PAIN AT THE EPIGASTRIC AREA AND AROUND THE NAVEL. DR. ESPINOZA IS AWARE OF THIS. PT HAS BEEN MEDICATED FOR EPIGASTRIC PAIN. PT'S BLOOD PRESSURE STABLE WITH MIDODRINE. LEVOPHED DRIP HAS BEEN OFF SINCE 0400 THIS MORNING. PT HAS BEEN SLEEPING MOST OF THE DAY BUT IS EASILY MORE AROUSBLE.
--- NOTE | 2018-08-16 21:22 | NUR ---
ASSUMED CARE OF PT, REPORT RCV'D FROM SHAW GREWAL. PT SLEEPING BUT AROUSABLE. PT STATES SHE STILL HAS "UPSET STOMACH" BUT THAT IT IS BETTER SINCE MAALOX AND ZOFRAN. PT REMINDED THAT DR PUT IN OT ORDER FOR GI-COCKTAIL THAT SHE CAN HAVE, PT STATES THAT SHE WANTS TO WAIT. VSS. SEE FULL SHIFT ASSESSMENT.
[2018-08-17 01:01] LABS: Vancomycin, Trough 10.2 ug/mL (5.0-10.0)
[2018-08-17 03:17] LABS: BASOPHILS ABSOLUTE AUTO 0.03 K/mm3 (0.00-0.23); BASOPHILS PERCENT AUTO 0 % (0-2); EOSINOPHILS ABSOLUTE AUTO 0.01 K/mm3 (0.00-0.68); EOSINOPHILS PERCENT AUTO 0 % (0-6); Hematocrit 35.3 % (33.0-51.0); Hemoglobin 9.9 g/dL (11.5-16.0); IMMATURE GRAN ABSOLUTE AUTO 0.06 K/mm3 (0.00-0.10); IMMATURE GRAN PERCENT AUTO 1 % (0-1); LYMPHOCYTES ABSOLUTE AUTO 1.42 K/mm3 (0.84-5.20); LYMPHOCYTES PERCENT AUTO 16 % (21-46); MONOCYTES ABSOLUTE AUTO 0.59 K/mm3 (0.16-1.47); MONOCYTES PERCENT AUTO 7 % (4-13); Mean Corpuscular HGB 32.1 pg (26.0-34.0); Mean Corpuscular Volume 115 fL (80-100); Mean Platelet Volume 11.3 fL (9.1-12.4); NEUTROPHILS ABSOLUTE AUTO 6.83 K/mm3 (1.96-9.15); NEUTROPHILS PERCENT AUTO 76 % (41-73); Platelet Count 99 K/mm3 (150-400); RDW Standard Deviation 63.8 fL (35.1-46.3); Red Blood Cell Count 3.08 M/mm3 (3.80-5.20); White Blood Cell Count 8.94 K/mm3 (4.00-11.30)
[2018-08-17 03:38] LABS: Alanine Aminotransfer (ALT/SGP 11 U/L (12-78); Albumin, Blood 3.2 g/dL (3.4-5.0); Alk Phos 24 U/L (50-136); Anion Gap 6 mmol/L (6-16); Aspartate Aminotrans (AST/SGOT 14 U/L (12-37); Blood Urea Nitrogen 30 mg/dL (8-24); Bun/Creatinine Ratio 24.6 (12.0-20.0); CO2, Blood 26 mmol/L (21-32); Chloride, Blood 115 mmol/L (98-108); Creatinine, Blood 1.22 mg/dL (0.40-1.00); Globulin, Blood 3.1 g/dL (2.2-4.0); Glomerular Filtration Rate 45 (60-); Glucose, Blood 114 mg/dL (70-99); Magnesium, Blood 1.9 mg/dL (1.6-2.4); Phosphorus, Blood 3.5 mg/dL (2.5-4.9); Potassium, Blood 4.3 mmol/L (3.5-5.5); Sodium, Blood 147 mmol/L (136-145); Total Protein, Blood 6.3 g/dL (6.4-8.2)
--- NOTE | 2018-08-17 06:04 | NUR ---
SHIFT SUMMARY PT CONTINUES TO HAVE NAUSEA WITH DRY HEAVES REQUIRING ZOFRAN Q4 PRESCRIBED. PT HAS DENIES EPIGASTRIC PAIN AND HAS NOT NEEDED THE OT GI-COCKTAIL. PT ANSWERS QUESTIONS YES/NO AND SAYS "WHAT HONEY" BUT IS UNABLE TO ANSWER QUESTIONS IN SENTENCES OR IDENTIFY WHERE SHE IS. PT LETHARGIC AND MOANS WHILE AWAKE. PT HAD VERY LARGE LOOSE BM THIS SHIFT, ATTENDS IN PLACE. COCCYX RED WITH SMALL SKIN TEAR NOTED. VSS. WILL REPORT TO DAYSHIFT NURSE.
--- NOTE | 2018-08-17 07:22 | NUR ---
ASSUMED CARE: PT RESTING QUIETLY IN BED AT THIS TIME. NO ACUTE NEEDS NOTED.
--- NOTE | 2018-08-17 09:39 | NUR ---
DISCUSSED WITH DR ESPINOZA PT'S ONGOING NAUSEA, LARGE BOWEL MOVEMENTS, AND LETHARGY. SEE NEW ORDERS
--- NOTE | 2018-08-17 10:40 | NUR ---
CALL TO DR ESPINOZA TO CHECK IF CDIFF ORDER NEEDED. STATES THAT PT RECIEVED SEVERAL SUPPOSITORIES AND BOWEL CARE MEDS SO NO ORDER NEEDED AT THIS TIME.
--- NOTE | 2018-08-17 17:47 | NUR ---
SHIFT SUMMARY: PT BACK IN BED AFTER BEING UP IN CHAIR FOR MAJORITY OF DAY. PT C/O NAUSEA AND DISCOMFORT WITH STIMULATION BUT FALLS ASLEEP SHORTLY AFTER THIS. PT'S DAUGHTER CAME BY TO VISIT AND WAS GIVEN AN UPDATE BY DR BERUMEN. HAD NO FURTHER QUESTIONS OR CONCERNS. PT REMAINS PCU STATUS AT THIS TIME.
--- NOTE | 2018-08-17 22:50 | NUR ---
CARE ASSUMPTION PT ALERT, ORIENTED TO SELF AND FAMILY IN ROOM. VSS. LUNG SOUNDS CLEAR, SPO2 > 92% ON 3L NC. MONITOR SHOWS NSR, HR 60'S. PT C/O NAUSEA AND PAIN "EVERYWHERE". PT MEDICATED FOR PAIN AND NAUSEA PER EMAR. PT INCONTINENT OF URINE AND STOOL, ATTENDS IN PLACE. 1 LOOSE, BROWN BM UPON CARE ASSUMPTION. WILL CONTINUE TO MONITOR AND PROVIDE CARE.
[2018-08-18 03:08] LABS: BASOPHILS ABSOLUTE AUTO 0.02 K/mm3 (0.00-0.23); BASOPHILS PERCENT AUTO 0 % (0-2); EOSINOPHILS ABSOLUTE AUTO 0.05 K/mm3 (0.00-0.68); EOSINOPHILS PERCENT AUTO 1 % (0-6); Hemoglobin 10.1 g/dL (11.5-16.0); IMMATURE GRAN ABSOLUTE AUTO 0.03 K/mm3 (0.00-0.10); IMMATURE GRAN PERCENT AUTO 0 % (0-1); LYMPHOCYTES ABSOLUTE AUTO 1.83 K/mm3 (0.84-5.20); LYMPHOCYTES PERCENT AUTO 24 % (21-46); MONOCYTES ABSOLUTE AUTO 0.55 K/mm3 (0.16-1.47); MONOCYTES PERCENT AUTO 7 % (4-13); Mean Corpuscular HGB 32.1 pg (26.0-34.0); Mean Corpuscular HGB Conc 28.1 g/dL (31.5-36.5); Mean Corpuscular Volume 114 fL (80-100); Mean Platelet Volume 11.4 fL (9.1-12.4); NEUTROPHILS ABSOLUTE AUTO 5.03 K/mm3 (1.96-9.15); NEUTROPHILS PERCENT AUTO 67 % (41-73); Platelet Count 112 K/mm3 (150-400); RDW Standard Deviation 63.7 fL (35.1-46.3); Red Blood Cell Count 3.15 M/mm3 (3.80-5.20); White Blood Cell Count 7.51 K/mm3 (4.00-11.30)
[2018-08-18 03:21] LABS: Albumin, Blood 3.1 g/dL (3.4-5.0); Anion Gap 3 mmol/L (6-16); Blood Urea Nitrogen 39 mg/dL (8-24); Bun/Creatinine Ratio 29.1 (12.0-20.0); CO2, Blood 27 mmol/L (21-32); Calcium, Blood 8.5 mg/dL (8.5-10.1); Chloride, Blood 118 mmol/L (98-108); Creatinine, Blood 1.34 mg/dL (0.40-1.00); Glomerular Filtration Rate 40 (60-); Glucose, Blood 94 mg/dL (70-99); Magnesium, Blood 2.3 mg/dL (1.6-2.4); Phosphorus, Blood 2.5 mg/dL (2.5-4.9); Potassium, Blood 3.9 mmol/L (3.5-5.5); Sodium, Blood 148 mmol/L (136-145)
--- NOTE | 2018-08-18 06:18 | NUR ---
SHIFT SUMMARY PT ALERT, ORIENTED TO SELF AND FAMILY. VSS. PT C/O NAUSEA AND PAIN, MEDICATED PER EMAR X1 THIS SHIFT. PT INCONTINENT OF URINE AND STOOL, WEARING ATTENDS. Q2H REPOSITIONING W/ PRN RADHA CARE AND ATTENDS CHANGES. LUNG SOUNDS CLEAR. SPO2 > 92% ON 1L NC. MONITOR SHOWING SB/NSR, HR 50-70. WILL CONTINUE TO MONITOR AND PROVIDE CARE UNTIL REPORT OFF TO DAY SHIFT RN.
--- NOTE | 2018-08-18 10:22 | NUR ---
RECEIVED REPORT AND ASSUMED CARE OF PATIENT. SHE IS SITTING UP IN BED FOR MEDICATION ADMINISTRATION. PT C/O NAUSEA WITH THERAPY, HOWEVER WHEN THIS RN ASSESSED FOR NAUSEA PT STATES "I'M DOING GOOD." WILL CONTINUE TO MONITOR CLOSELY, PT IS CONFUSED AT BASELINE AND MAY NOT BE ABLE TO EXPRESS NEEDS APPROPRIATELY. BED LOCKED AND LOW, CALL LIGHT WITHIN EASY REACH, SCDS IN PLACE.
--- NOTE | 2018-08-18 14:41 | NUR ---
PT TO XRAY. STATED SHE IS FEELING NAUSEOUS, ADMINISTERED 4 MG ZOFRAN PER ORDER.
--- NOTE | 2018-08-18 15:01 | NUR ---
Per admit dulce, I met with Mrs. Roach's family to offer information regarding Advanced Directives. Pt has dementia. Family states POLST on file. They declined need for any further advanced care planning document. Family appears loving and devoted. Pt was awake, but did not speak to me. I will remain available.
--- NOTE | 2018-08-18 17:15 | NUR ---
RECEIVED ROOM ASSIGNMENT AND GAVE REPORT TO SHAW ALVARADO FOR ROOM 312. WILL TRANSFER PATIENT SOON ROOM READY.
--- NOTE | 2018-08-18 18:11 | NUR ---
PT FAMILY AT BEDSIDE MOST OF THE DAY. PT IS RESTING WELL AND RELAXED THROUGHOUT THE SHIFT. SHE HAS STRUGGLED OFF AND ON WITH STOMACH UPSET, TREATED WITH GI COCKTAIL AND ZOFRAN PER EMAR. PT CONTINUES ON 1LPM O2 VIA NC. PT IS INCONTINENT OF BOWEL AND BLADDER, ATTENDS IN PLACE. Q2 POSITIONING, PT TOLERATING WELL. WILL CONTINUE TO MONITOR AND AWAIT [facility] FLOOR ROOM 312 BED TO BECOME AVAILABLE.
--- NOTE | 2018-08-18 19:24 | NUR ---
RECEIVED HANDOFF REPORT RECEIVED HANDOFF REPORT FROM ICU NURSE JACQUIE. PT BROUGHT TO ROOM WNL. PT ORIENTED TO UNIT. GAVE HANDOFF REPORT TO ONCOMING NURSE KEY SHORTLY AFTER THE PT ARRIVED ON THE FLOOR.
--- NOTE | 2018-08-19 03:59 | NUR ---
08/19/18 0355 NO VOIDING IN ATTENDS. BLADDER SCAN = 312 ML. WILL INFORM CITY EDITOR MD.REPOSITIONED IN BED AND SIPS OF THICKENED WATER GIVEN.
[2018-08-19 06:56] LABS: BASOPHILS ABSOLUTE AUTO 0.02 K/mm3 (0.00-0.23); BASOPHILS PERCENT AUTO 0 % (0-2); EOSINOPHILS ABSOLUTE AUTO 0.04 K/mm3 (0.00-0.68); EOSINOPHILS PERCENT AUTO 1 % (0-6); Hematocrit 35.9 % (33.0-51.0); Hemoglobin 10.2 g/dL (11.5-16.0); IMMATURE GRAN ABSOLUTE AUTO 0.02 K/mm3 (0.00-0.10); IMMATURE GRAN PERCENT AUTO 0 % (0-1); LYMPHOCYTES ABSOLUTE AUTO 1.68 K/mm3 (0.84-5.20); LYMPHOCYTES PERCENT AUTO 27 % (21-46); MONOCYTES ABSOLUTE AUTO 0.59 K/mm3 (0.16-1.47); MONOCYTES PERCENT AUTO 9 % (4-13); Mean Corpuscular HGB 31.9 pg (26.0-34.0); Mean Corpuscular HGB Conc 28.4 g/dL (31.5-36.5); Mean Corpuscular Volume 112 fL (80-100); NEUTROPHILS ABSOLUTE AUTO 3.96 K/mm3 (1.96-9.15); NEUTROPHILS PERCENT AUTO 63 % (41-73); Platelet Count 125 K/mm3 (150-400); RDW Standard Deviation 63.2 fL (35.1-46.3); White Blood Cell Count 6.31 K/mm3 (4.00-11.30)
[2018-08-19 07:14] LABS: Bun/Creatinine Ratio 29.4 (12.0-20.0); Calcium, Blood 8.8 mg/dL (8.5-10.1); Creatinine, Blood 1.26 mg/dL (0.40-1.00)
--- NOTE | 2018-08-19 07:41 | NUR ---
08/19/18 0630 NO VOIDING THIS SHIFT. NPO EXCEPT FOR THICKENED WATER WITH MEDS AND IV FLUIDS AT TKO RATE. DR HIGGINS NOTIFIED OF NO VOID AND BLADDER SCAN RESULTS. SEE ORDERS FOR REPEAT SCAN AT 10 AM. REPOSITIONED Q 2 HOURS WITH 2 STAFF. PT VERY WEAK.
--- NOTE | 2018-08-19 10:18 | NUR ---
HOSPITALIST CALLED HOSPITALIST INFORMED MY RELIEF THAT IT IS OKAY FOR PHYSICAL THERAPY TO WORK WITH THIS PT DESPITE ELEVATED TROPONINS. PT HAS ELEVATED TROPONINS DUE TO CARDIOMYOPATHY AND THE DOCTOR DOES NOT FEEL THAT PHYSICAL THERAPY IS A RISK TO THIS PT.
--- NOTE | 2018-08-19 13:53 | NUR ---
BLADDER SCAN @ 1030 HRS REVEALED 282 ML. PT IS NOW INGESTING FOOD AND FLUIDS. WILL CONTINUE TO MONITOR
--- NOTE | 2018-08-19 16:39 | NUR ---
SHIFT SUMMARY 82 YR OLD FEMALE ADMITTED FOR TOXIC METABOLIC ENCEPHALOPATHY (IN THE NOTES I FOUND SHOCK, UROSEPSIS, AND LLL PNEUMONIA SECONDARY DIAGNOSES). DNR. D5W-1/2 NS RUNNING AT 50 ML/HR. CHARGE NURSES ARE CONSIDERING REMOVING HER CENTRAL IJ AND FINDING ANOTHER IV ACCESS. [facility] PLAN IS FOR DC TO A SNF W/REHAB. TODAY THE PT WAS ADVANCED TO [facility] SOFT/GROUND MEAT DIET AFTER SPEECH THERAPY DID A SWALLOW EVAL TODAY. MEPILEX ON COCCYX DUE TO REDNESS. MEPILEX ON SKIN TEARS ON LEFT ELBOW AND LEG. MEDS TAKEN ONE AT A TIME WITH APPLESAUCE. 1 LPM O2. PHYSICAL AND OCCUPATIONAL THERAPY WORKED WITH THE PT TODAY. HX: COPD, CHF, CIRROSIS, ALZHEIMERS, ASTHMA. CKD3, DIVERTICULITIS. WHEELCHAIR USE @ BASELINE.
--- NOTE | 2018-08-19 16:48 | NUR ---
[facility] intial visit: Mrs. Roach was alone in room. She appears frail and very weak. "I've had 16 surgeries" is why she told me she is here. She states she is hopeful she will get better. She allowed me to pray for her and fell to sleep. I will remain available to pt and family.
--- NOTE | 2018-08-19 18:37 | NUR ---
CENTRAL LINE REMOVED PROCEDURE NURSE ASKS THAT I WAIT 30 MINUTES BEFORE ELEVATING PT'S HEAD TO 45 DEGREES, THEN ANOTHER 15 MINUTES UNTIL I LIFT THE PT'S HEAD TO 90 DEGREES. HOLDING MEAL AND MIDODRINE UNTIL AFTER THAT TIME HAS ELAPSED DUE TO DYSPHAGIA CONCERNS.
[2018-08-20 01:56] LABS: Bun/Creatinine Ratio 26.8 (12.0-20.0); Calcium, Blood 8.4 mg/dL (8.5-10.1); Creatinine, Blood 1.27 mg/dL (0.40-1.00); Potassium, Blood 4.3 mmol/L (3.5-5.5)
[2018-08-20 02:00] LABS: Vancomycin, Trough 21.7 ug/mL (5.0-10.0)
--- NOTE | 2018-08-20 05:48 | NUR ---
08/20/18 0530 AWAKENED FOR REPOSITIONING AND AM MEDS. DENIES ANY DISCOMFORT OR OTHER S/S. VITLAS STABLE. INCONTINENT SEVERAL TIMES THIS SHIFT IN ATTENDS BRIEFS. TAKING SMALL AMOUNTS OF ORAL FLUIDS PER TOLERANCE. O2 REMAINS AT 1 LPM VIA N/C.
[2018-08-20 12:31] LABS: Bun/Creatinine Ratio 26.7 (12.0-20.0); Calcium, Blood 8.6 mg/dL (8.5-10.1); Creatinine, Blood 1.2 mg/dL (0.40-1.00); Potassium, Blood 4.3 mmol/L (3.5-5.5)
--- NOTE | 2018-08-20 18:42 | NUR ---
SHIFT SUMMARY SHENA WAS VERY SLEEPY TODAY. GOT HER UP TO A CHAIR FOR BREAKFAST WITH MAX ASSISST OF TWO, FEEDER FOR MEALS. ASPIRATON PRECAUTIONS FOLLOWED. 1L BY NASAL CANNULA. MIVF DC'D, PT EDEMATOUS ON BUE. INCONTINENT URINE, Q2 TURN AND CHANGE. PALLIATIVE VISITED TODAY TO TALK TO DAUGHTER TO DETERMINE PLAN OF CARE AND DISCHARGE OPTIONS. TOUCH CALL LIGHT IN REACH, WCTM
[2018-08-21 05:22] LABS: BASOPHILS ABSOLUTE AUTO 0.04 K/mm3 (0.00-0.23); BASOPHILS PERCENT AUTO 1 % (0-2); EOSINOPHILS ABSOLUTE AUTO 0.25 K/mm3 (0.00-0.68); EOSINOPHILS PERCENT AUTO 4 % (0-6); Hematocrit 34.3 % (33.0-51.0); Hemoglobin 9.8 g/dL (11.5-16.0); IMMATURE GRAN ABSOLUTE AUTO 0.07 K/mm3 (0.00-0.10); IMMATURE GRAN PERCENT AUTO 1 % (0-1); LYMPHOCYTES ABSOLUTE AUTO 2.34 K/mm3 (0.84-5.20); LYMPHOCYTES PERCENT AUTO 39 % (21-46); MONOCYTES ABSOLUTE AUTO 0.61 K/mm3 (0.16-1.47); MONOCYTES PERCENT AUTO 10 % (4-13); Mean Corpuscular HGB 32.8 pg (26.0-34.0); Mean Corpuscular HGB Conc 28.6 g/dL (31.5-36.5); Mean Platelet Volume 11.2 fL (9.1-12.4); NEUTROPHILS ABSOLUTE AUTO 2.74 K/mm3 (1.96-9.15); NEUTROPHILS PERCENT AUTO 45 % (41-73); Platelet Count 130 K/mm3 (150-400); RDW Coefficient Variation 14.9 % (11.7-14.2); RDW Standard Deviation 62.8 fL (35.1-46.3); Red Blood Cell Count 2.99 M/mm3 (3.80-5.20); White Blood Cell Count 6.05 K/mm3 (4.00-11.30)
[2018-08-21 05:25] LABS: Mean Corpuscular Volume 115 fL (80-100)
[2018-08-21 05:39] LABS: Albumin, Blood 2.5 g/dL (3.4-5.0); Albumin/Globulin Ratio 0.8 (0.8-1.8); Bilirubin, Total 0.5 mg/dL (0.1-1.0); Bun/Creatinine Ratio 20.8 (12.0-20.0); Calcium, Blood 8.4 mg/dL (8.5-10.1); Creatinine, Blood 1.25 mg/dL (0.40-1.00); Globulin, Blood 3.1 g/dL (2.2-4.0); Magnesium, Blood 2.2 mg/dL (1.6-2.4); Total Protein, Blood 5.6 g/dL (6.4-8.2)
--- NOTE | 2018-08-21 15:58 | NUR ---
Comfort Care: Pt is resting comfortably in bed with eyes closed. Does not appear to have symptoms that are distressing. Resp even and unlabored. Family is not in the room at this time. Will remain available.
--- NOTE | 2018-08-21 17:40 | NUR ---
Pal Spiritual Care note: Several attempts to meet with pt's dtr today. On each attempt, Mrs. Roach was alone in room and sleeping. She appears comfortbale and well cared-for by nursing. Crtt Services will remain available.
--- NOTE | 2018-08-21 19:42 | NUR ---
SHIFT SUMMARY SHENA WAS MUCH WEAKER TODAY, MUCH MORE TIRED, MORE SWOLLEN IN HER EXTREMITIES. FAMILY VISITED, AND SHE WAS SWITCHED TO COMFORT CARE. INCONTINENT URINE, Q2 TURN. VERY LETHARGIC, BUT ROUSES EASILY. DENIED PAIN. MORE CONFUSED THIS SHIFT THAN YESTERDAY. COCCYX AREA RED AND EXCORIATED. WILL DC TO [facility] TOMORROW MORNING. STILL REQUIRING FEED ASSIST. CALL LIGHT IN REACH,
[2018-08-22] MEDS ORDERED: ATROPINE 0.01%-10 ML SL (09:35)
[2018-08-22] MEDS ORDERED: Nystop60 GM TOP (09:35)
[2018-08-22] MEDS ORDERED: MORP20L PO (09:36)
--- NOTE | 2018-08-22 13:35 | NUR ---
DISCHARGE SUMMARY PT DISCHARGED TO [facility]. REPORT CALLED TO RN AT 0936. PT LEFT ROOM VIA GURNEY AT 1326. POWERGLCASSANDRA DC'D BY PROCEDURE NURSE, GENTRY. NECK DRESSING REPLACED. PT'S DAUGHTER EDUCATED ABOUT MEDICATIONS AND COMFORT CARE. OXYGEN TANK FROM [facility] [employer] SUPPLY SENT WITH PT'S DAUGHTER.
== END 2018-08-22 13:26 | disposition hospice, home (50) | DRG 871 ==
LOC: ER 19:53 → ICUE 23:02 → ICUW 23:02 → ICUE 08-15 20:40 → MEDS 08-18 18:41 → ENPENDDIS 08-22 09:25 → EDPENDDIS 08-22 09:25 → MEDS 08-22 13:26
PROVIDERS: Emergency Medicine; Internal Medicine; Internal Medicine Critical Care Medicine; Internal Medicine Interventional Cardiology; ADMIT Hospitalist
PROC: 5A1945Z Respiratory Ventilation, 24-96 Consecutive Hours (ICD-10-PCS; 2018-08-14)
PROC: 05HN33Z Insertion of Infusion Device into Left Internal Jugular Vein, Percutaneous Approach (ICD-10-PCS; principal; 2018-08-15)
DX: A41.51 Sepsis due to Escherichia coli [E. coli] (principal); R65.21 Severe sepsis with septic shock; R57.0 Cardiogenic shock; G93.41 Metabolic encephalopathy; J96.21 Acute and chronic respiratory failure with hypoxia; J18.1 Lobar pneumonia, unspecified organism; I21.A1 Myocardial infarction type 2; J96.22 Acute and chronic respiratory failure with hypercapnia; I51.81 Takotsubo syndrome; N39.0 Urinary tract infection, site not specified; E87.0 Hyperosmolality and hypernatremia; J44.0 Chronic obstructive pulmonary disease with (acute) lower respiratory infection; I13.0 Hypertensive heart and chronic kidney disease with heart failure and stage 1 through stage 4 chronic kidney disease, or unspecified chronic kidney disease; I50.32 Chronic diastolic (congestive) heart failure; Z51.5 Encounter for palliative care; Z66 Do not resuscitate; G30.9 Alzheimer's disease, unspecified; F02.80 Dementia in other diseases classified elsewhere, unspecified severity, without behavioral disturbance, psychotic disturbance, mood disturbance, and anxiety; G89.4 Chronic pain syndrome; R31.9 Hematuria, unspecified; I35.1 Nonrheumatic aortic (valve) insufficiency; I34.0 Nonrheumatic mitral (valve) insufficiency; I27.20 Pulmonary hypertension, unspecified; I36.1 Nonrheumatic tricuspid (valve) insufficiency; E66.9 Obesity, unspecified; I48.91 Unspecified atrial fibrillation; N18.3 Chronic kidney disease, stage 3 (moderate); Z99.3 Dependence on wheelchair; Z99.81 Dependence on supplemental oxygen; K74.69 Other cirrhosis of liver; R13.12 Dysphagia, oropharyngeal phase; K21.9 Gastro-esophageal reflux disease without esophagitis; Z87.820 Personal history of traumatic brain injury; I67.9 Cerebrovascular disease, unspecified; F32.9 Major depressive disorder, single episode, unspecified; E87.6 Hypokalemia
CPT/HCPCS: 36415; 36556; 36600; 70450; 71045; 74176; 74220; 80048; 80053; 80069; 80202; 81001; 82803; 83605; 83690; 83735; 84100; 84145; 84484; 85025; 85610; 85730; 87040; 87077; 87086; 87186; 92526; 92610; 93005; 93010; 93306; 94640; 94760; 96361; 96365; 96375; 97110; 97162; 97166; 97530; 97535; 99285-25; A9270; C1751; C9113; J0696; J1265; J1644; J1650; J2250; J2405; J2543; J3010; J3370; J7030; J7042; J7050; J7060; P9046; P9612